=== PATIENT | female | born 1960 | race Caucasian/White ===

== ENCOUNTER 2016-05-26 14:05 | Inpatient (IN) | payer MEDICAID ==
--- NOTE | 2016-05-26 14:09 | ED Physician Chart ---
Chief Complaint/HPI - Patient Information Date Seen:: 05/26/16 Time Seen:: 14:09 Chief Complaint:: confusion History of Present Illness:: 55-year-old female with worsening, constant, moderate, confusion 3 days. Has associated uncooperative behavior and refusing to take her medications. Patient has a past history of hepatic encephalopathy. History limited as patient has underlying confusion History provided by EMS and EMS run sheet Allergies:: Allergies Allergy/AdvReac Type Severity Reaction Status Date / Time No Known Allergies Allergy Verified 04/20/16 01:14 Historian:: EMS Review:: Nurse's Note Reviewed, EMS run form Reviewed, Transfer documents Reviewed Review of Systems - Review of Systems Other: Complete system review otherwise unremarkable except as noted in HPI. Past Medical History - Past Medical History Past Medical History: PUD/GERD, Thyroid disorder, Other (hepatic failure, orthostatic hypotension, unspecified cirrhosis of the liver, history of diverticulosis) Family History: None Social History: Non Smoker, No Alcohol, No Drug Use, Lives With Parents Surgical History: None Psychiatricy History: Other Medication: None Family Medical History - Family Member Mother History Unknown: Yes Ethnicity: Hx Family Cancer: No Hx Family Coronary Artery Disease: No Hx Family Congestive Heart Failure: No Hx Family Hypertension: No Hx Family Stroke: No Hx Family Diabetes: No Hx Family Seizures: No Hx Family Dementia: No Hx Family AIDS: No Hx Family HIV: No Hx Family COPD: No Hx Family Hepatitis: No Hx Family Psychiatric Problems: No Hx Family Tuberculosis: No Physical Exam - Physical Examination Other:: INITIAL VITAL SIGNS: Reviewed by me GENERAL: Alert and interactive but confused. No acute distress HEAD: Head is normocephalic and atraumatic EYES: EOMI. . No scleral icterus. No conjunctival injection ENT: Moist mucous membranes. NECK: Supple. No masses. Full range of motion RESPIRATORY: No tachypnea. Clear breath sounds bilaterally. No wheezing, rales, or rhonchi CV: Regular rate and rhythm. No murmurs, rubs, or gallops ABDOMEN: Soft, non-distended, non-tender. No guarding. No rebound. No masses. EXTREMITIES: No deformity. No cyanosis. No edema. SKIN: Warm and dry. No obvious rashes. NEUROLOGIC: Alert and oriented. Face is symmetric. Speech is normal. Moves all extremities equally. Motor and sensory distally intact. Labs/Radiology/EKG Results - Lab Results Results: Lab Results 05/26/16 05/26/16 05/26/16 Range/Units 14:28 14:28 14:28 WBC 6.1 (4.8-10.8) Th/cmm RBC 3.55 L (3.80-5.10) Mil/cmm Hgb 10.6 L (11.7-15.5) gm/dL Hct 31.4 L (35.0-45.0) % MCV 88.5 (81-100) fl MCH 29.8 (27.0-31.0) pg MCHC Differential 33.7 (28.0-36.0) pg RDW 14.3 (11.5-20.0) % Plt Count 167 D (150-400) Th/cmm MPV 7.5 fl Neutrophils % 52.1 (40.0-80.0) % Lymphocytes % 35.2 (20.0-50.0) % Monocytes % 9.5 (2.0-10.0) % Eosinophils % 2.5 (0.0-5.0) % Basophils % 0.7 (0.0-2.0) % PT 11.6 H (9.5-11.5) SECONDS INR 1.16 (0.5-1.4) PTT (Actin FS) 27.6 (26.0-38.0) SECONDS Sodium 135 L (136-145) mEq/L Potassium 3.8 (3.5-5.1) mEq/L Chloride 108 H (98-107) mEq/L Carbon Dioxide 20.5 L (21.0-31.0) mEq/L Anion Gap 10.3 (7.0-16.0) BUN 11 (7-25) mg/dL Creatinine 0.6 (0.6-1.2) mg/dL Est GFR ( Amer) > 60.0 ml/min Est GFR (Non-Af Amer) > 60.0 ml/min BUN/Creatinine Ratio 18.3 Glucose 115 H (70-105) mg/dL Whole Bld Lactic Acid (0.60-2.00) mmol/L Calcium 10.4 H (8.6-10.3) mg/dL Total Bilirubin 1.3 H (0.3-1.0) mg/dL AST 24 (13-39) U/L ALT 12 (7-52) U/L Alkaline Phosphatase 161 H (34-104) U/L Ammonia (16-53) umol/L Creatine Kinase 32 (30-223) U/L Total Protein 7.4 (6.0-8.3) gm/dL Albumin 3.8 (3.7-5.3) gm/dL Globulin 3.6 gm/dL Albumin/Globulin Ratio 1.1 (1.0-1.8) 05/26/16 05/26/16 Range/Units 14:28 14:28 WBC (4.8-10.8) Th/cmm RBC (3.80-5.10) Mil/cmm Hgb (11.7-15.5) gm/dL Hct (35.0-45.0) % MCV (81-100) fl MCH (27.0-31.0) pg MCHC Differential (28.0-36.0) pg RDW (11.5-20.0) % Plt Count (150-400) Th/cmm MPV fl Neutrophils % (40.0-80.0) % Lymphocytes % (20.0-50.0) % Monocytes % (2.0-10.0) % Eosinophils % (0.0-5.0) % Basophils % (0.0-2.0) % PT (9.5-11.5) SECONDS INR (0.5-1.4) PTT (Actin FS) (26.0-38.0) SECONDS Sodium (136-145) mEq/L Potassium (3.5-5.1) mEq/L Chloride (98-107) mEq/L Carbon Dioxide (21.0-31.0) mEq/L Anion Gap (7.0-16.0) BUN (7-25) mg/dL Creatinine (0.6-1.2) mg/dL Est GFR ( Amer) ml/min Est GFR (Non-Af Amer) ml/min BUN/Creatinine Ratio Glucose (70-105) mg/dL Whole Bld Lactic Acid 1.15 (0.60-2.00) mmol/L Calcium (8.6-10.3) mg/dL Total Bilirubin (0.3-1.0) mg/dL AST (13-39) U/L ALT (7-52) U/L Alkaline Phosphatase (34-104) U/L Ammonia 66 H (16-53) umol/L Creatine Kinase (30-223) U/L Total Protein (6.0-8.3) gm/dL Albumin (3.7-5.3) gm/dL Globulin gm/dL Albumin/Globulin Ratio (1.0-1.8) - Radiology Results Results: Single AP VIEW Portable Chest X-ray was interpreted independently and contemporaneously by Yolanda Yancey MD: No cardiomegaly Normal mediastinum No lung infiltrates No pneumothorax No soft tissue or bony abnormalities - EKG Interpretations Comments:: 12-lead EKG Interpretation by Yolanda Yancey MD: Normal Sinus Rhythm with ventricular rate of 76 beats per minute Normal axis Normal intervals No acute ST or T wave changes. No obvious STEMI ED Septic Shock - . Is Septic Shock (SBP<90, OR Lactate>4 mmol\L) present?: No Reassessment (Disposition) - Reassessment Reassessment:: Patient has elevated ammonia. She has hepatic encephalopathy. Apparently she is refusing to take her lactulose. Also has a hyponatremia and anemia. Discussed the case with Dr. Camp who is admitting for . He will admit the patient to his service for further workup and treatment. Reassessment Condition:: Unchanged - Diagnosis Diagnosis:: Metabolic encephalopathy secondary to mid ammonia levels - Patient Disposition Discharge/Transfer:: Acute Care w/in this hosp Admitted to:: Med/Surg Admitting Medical Physician:: Sen Camp Time:: 17:00 Condition at Disposition:: Stable ED Discharge Plan - Patient Disposition Admit/Discharge/Transfer: Acute Care w/in this hosp
[2016-05-26 14:45] LABS: % BASOPHILS 0.7 % (0.0-2.0); % EOSINOPHILS 2.5 % (0.0-5.0); % LYMPHOCYTES 35.2 % (20.0-50.0); % MONOCYTES 9.5 % (2.0-10.0); % NEUTROPHILS 52.1 % (40.0-80.0); HEMATOCRIT 31.4 % (35.0-45.0); HEMOGLOBIN 10.6 gm/dL (11.7-15.5); MEAN CELL VOLUME 88.5 fl (81-100); MEAN CORPUSCULAR HEMOGLOBIN 29.8 pg (27.0-31.0); MEAN CORPUSCULAR HGB CONC 33.7 pg (28.0-36.0); MEAN PLATELET VOLUME 7.5 fl; NEUTROPHILE ABSOLUTE 3.2 Th/cmm (1.8-8.0); RED BLOOD COUNT 3.55 Mil/cmm (3.80-5.10); RED CELL DISTRIBUTION WIDTH 14.3 % (11.5-20.0); WHITE BLOOD COUNT 6.1 Th/cmm (4.8-10.8)
[2016-05-26 14:51] LABS: PLATELET COUNT 167 Th/cmm (150-400)
[2016-05-26 14:53] LABS: INR 1.16 (0.5-1.4); PROTHROMBIN TIME (TEST) 11.6 SECONDS (9.5-11.5)
[2016-05-26 15:00] LABS: ALB/GLOB RATIO 1.1 (1.0-1.8); ALKALINE PHOSPHATASE 161 U/L (34-104); ANION GAP 10.3 (7.0-16.0); BILIRUBIN,TOTAL 1.3 mg/dL (0.3-1.0); BUN - UREA NITROGEN 11 mg/dL (7-25); BUN/CREATININE RATIO 18.3; CALCIUM SERUM 10.4 mg/dL (8.6-10.3); CARBON DIOXIDE 20.5 mEq/L (21.0-31.0); CHLORIDE 108 mEq/L (98-107); CREATININE - SERUM 0.6 mg/dL (0.6-1.2); GLUCOSE 115 mg/dL (70-105); POTASSIUM SERUM 3.8 mEq/L (3.5-5.1); SGOT 24 U/L (13-39); SGPT/ALT 12 U/L (7-52); SODIUM SERUM 135 mEq/L (136-145)
--- NOTE | 2016-05-26 15:21 | Diagnostic Imaging Report ---
Portable chest x-ray HISTORY: Shortness of breath, sepsis The overall heart size is difficult to assess with portable technique at a poor inspiration. No acute focal pulmonary processes. No hilar or mediastinal abnormalities. IMPRESSION: No acute abnormalities
[2016-05-26] MEDS ORDERED: Lactulose 10 Gm/15 mL 30mL UDC PO SCH (20:00)
[2016-05-27] MEDS ORDERED: Maalox 30 mL Cup PO PRN (01:56)
[2016-05-27] MEDS: Sodium Chloride 0.9% 1,000 ML IV SCH (02:24)
--- NOTE | 2016-05-27 03:30 | History & Physical ---
This is Dr. Sen Camp dictating a History and Physical on behalf of Dr. West. CHIEF COMPLAINT: The patient has generalized weakness with confusion. HISTORY OF PRESENT ILLNESS: As per the record, the patient was uncooperative and refusing to take her medications. The patient gives a different story that she was forced to take some medications that she does not want to take. Otherwise, no fever, no chills, no nausea, no vomiting, no diarrhea, no constipation, no dysuria. On initial evaluation, the patient's vital signs were stable and ammonia was high, it was 66. So, the patient was admitted with a diagnosis of hepatic encephalopathy. PAST MEDICAL HISTORY: Includes peptic ulcer, GERD, hypothyroidism, history of hepatic encephalopathy, hepatic failure, orthostatic hypotension, cirrhosis of liver, history of diverticulosis. FAMILY HISTORY: Noncontributory. SOCIAL HISTORY: The patient lives at a SNF. Denies any smoking, alcohol or drug use. PAST SURGICAL HISTORY: None. PSYCHIATRIC HISTORY: Depression one episode in the past and on Lexapro. ALLERGIES: No known drug allergies. MEDICATIONS: As per medication reconciliation sheet. REVIEW OF SYSTEMS: GENERAL: The patient has no fever, no chills. Has generalized weakness. HEENT: No diplopia. No photophobia. No sore throat. RESPIRATORY: No cough. No shortness of breath. CARDIOVASCULAR: No chest pain or palpitation. GASTROINTESTINAL: No nausea. No vomiting. No diarrhea. No constipation. GENITOURINARY: No dysuria. No hematuria. NEUROLOGICAL: No headache. No dizziness. No focal weakness. As per the records, the patient was confused. PHYSICAL EXAMINATION: CURRENT VITAL SIGNS: Temperature is 98 degrees Fahrenheit, pulse 71, respirations 20, blood pressure 103/47. GENERAL: The patient is comfortable lying in the bed, not in acute distress. HEENT: Head is normocephalic, atraumatic. Oral cavity moist, pink tongue. Eyes: No pallor, no icterus. Pupils, PERRLA, EOMI. NECK: Supple. No JVD. No carotid bruit. Trachea in midline. CHEST: Bilateral breath sounds. No crackles, no wheezing. HEART: S1, S2 within normal limits. Regular rhythm. No murmur. No gallop. ABDOMEN: Soft, nontender, nondistended. Bowel sounds present. EXTREMITIES: No cyanosis. No clubbing. No edema. NEUROLOGIC: Alert, awake, oriented x3. No focal neuro deficit. LABORATORY DATA: Current lab shows WBC count is 6100, hemoglobin 10.6, hematocrit is 31.4, platelets are 167,000, neutrophil is 52%. INR is 1.16, sodium is 135, potassium 3.8, chloride 108, bicarbonate is 20, BUN is 11, creatinine 0.6, glucose is 115. Lactic acid is 1.15. Total bilirubin 1.3, AST 24, ALT is 12, alkaline phosphatase 161 and ammonia is 66. CPK is 32. IMPRESSION: 1. Elevated ammonia, suspect hepatic encephalopathy. 2. Cirrhosis of liver, likely viral. 3. Hypothyroidism. 4. Anemia. 5. Orthostatic hypotension. 6. History of diverticulosis. PLAN: We will continue lactulose. Check ammonia level in the morning. Check TSH level in the morning. Meanwhile, we will start the patient on lactulose 30 mL 3 times a day and rifaximin. Depending on ammonia level tomorrow, we will decide further plan. Meanwhile, GI consultation was called. JOB# [id number] MTDGregory
[2016-05-27 05:19] LABS: % BASOPHILS 0.6 % (0.0-2.0); % EOSINOPHILS 2.9 % (0.0-5.0); % LYMPHOCYTES 38.2 % (20.0-50.0); % MONOCYTES 8.3 % (2.0-10.0); HEMATOCRIT 31.4 % (35.0-45.0); HEMOGLOBIN 10.8 gm/dL (11.7-15.5); MEAN CELL VOLUME 87.1 fl (81-100); MEAN CORPUSCULAR HGB CONC 34.4 pg (28.0-36.0); MEAN PLATELET VOLUME 7.8 fl; NEUTROPHILE ABSOLUTE 3.1 Th/cmm (1.8-8.0); PLATELET COUNT 153 Th/cmm (150-400); RED BLOOD COUNT 3.61 Mil/cmm (3.80-5.10); RED CELL DISTRIBUTION WIDTH 14.2 % (11.5-20.0); WHITE BLOOD COUNT 6.1 Th/cmm (4.8-10.8)
[2016-05-27 05:32] LABS: ALB/GLOB RATIO 1.1 (1.0-1.8); ALKALINE PHOSPHATASE 144 U/L (34-104); ANION GAP 9.9 (7.0-16.0); BILIRUBIN,TOTAL 1.4 mg/dL (0.3-1.0); BUN - UREA NITROGEN 12 mg/dL (7-25); CALCIUM SERUM 10.2 mg/dL (8.6-10.3); CARBON DIOXIDE 21.9 mEq/L (21.0-31.0); CHLORIDE 107 mEq/L (98-107); CREATININE - SERUM 0.6 mg/dL (0.6-1.2); GLUCOSE 93 mg/dL (70-105); POTASSIUM SERUM 3.8 mEq/L (3.5-5.1); SGOT 22 U/L (13-39); SGPT/ALT 11 U/L (7-52); SODIUM SERUM 135 mEq/L (136-145)
[2016-05-27] MEDS: Pantoprazole 40 mg EC Tab PO SCH (05:59)
[2016-05-27] MEDS: Lactulose 10 Gm/15 mL 30mL UDC PO SCH ×3 (05:59→20:36)
[2016-05-27] MEDS: Levothyroxine 0.025 Mg Tab PO SCH (05:59)
[2016-05-27] MEDS: Potassium Chloride 20 mEq ER Tab PO SCH ×2 (09:50→16:43)
[2016-05-27] MEDS: Multivitamin w/ Minerals Tab PO SCH (09:51)
--- NOTE | 2016-05-27 12:21 | Consultation ---
HISTORY OF PRESENT ILLNESS: This is a 55-year-old female who is seen through the courtesy of Dr. Sen Camp. This patient was admitted from the correction as this patient was found to have altered mental status. This patient has a known history of liver cirrhosis on the basis of heavy alcohol intake, which she continued to drink until 3 months ago. The patient was found to have ammonia level at 96, and the patient was then admitted. The patient denies any history of GI bleeding. No history of rectal bleeding. Denies any dysphagia. No history of weight loss. The patient does not smoke. The patient had been drinking heavily until she quit three months ago. PAST MEDICAL HISTORY: Also remarkable for history of hypothyroidism, history of major depression, history of arteriosclerotic heart disease with angina pectoris. The patient also had a history of GERD and diverticulosis. The patient had EGD and colonoscopy done in the past. The patient had a hysterectomy. REVIEW OF SYSTEMS: Remarkable for altered mental status. No history of GI bleeding. MEDICATIONS: She has been on in the correction on Ativan, Ambien, chlordiazepoxide, docusate sodium, lactulose, levothyroxine, magnesium oxide, Mylanta, Nitrostat p.r.n. ALLERGIES: The patient is not allergic to any medication. PHYSICAL EXAMINATION: GENERAL: The patient is an elderly female who is lethargic, but responsive and answering the question appropriately. VITAL SIGNS: Temperature is 98, respiratory rate is 18, blood pressure is 140/80, pulse is 82. HEENT: Head normocephalic. Pupils are reactive to light. Conjunctivae are slightly pale. No scleral icterus. Throat is clear. NECK: Supple. No JV distention, no mass. LUNGS: Revealed no rales or rhonchi. CARDIOVASCULAR: Revealed normal sinus rhythm. No evidence of any murmur. ABDOMEN: Soft, no organomegaly, no tenderness. Intestinal sounds are present. RECTAL: Not performed. EXTREMITIES: No peripheral edema, cyanosis or jaundice. LABORATORY DATA: White count is 6.1, hemoglobin is 10.8, hematocrit 31.4, serum ammonia is 96, BUN is 12, creatinine is 0.6. ASSESSMENT: 1. Altered level of consciousness, most likely is due to hepatic encephalopathy. 2. Liver cirrhosis on the basis of history of alcohol abuse. 3. Hypothyroidism. RECOMMENDATIONS: We will continue the patient on lactulose and also rifaximin and will follow the serum ammonia level and will watch the patient for any GI bleeding or any infection. Since the patient had EGD and colonoscopy, there is no need to do any invasive procedure unless the patient is having active GI bleeding. Thank you for the consult, Dr. Camp. We will follow this patient with you. JOB# [id number]
--- NOTE | 2016-05-27 16:22 | Infectious Disease Prog Note ---
Infectious Disease Subjective - Review of Systems Service Date: 05/27/16 Subjective: Patient feels better, there is no fever. Infectious Disease Objective - Results Result Diagrams: 05/27/16 05:00 05/27/16 05:00 Recent Labs: Laboratory Last Values WBC 6.1 Th/cmm (4.8-10.8) 05/27/16 05:00 RBC 3.61 Mil/cmm (3.80-5.10) L 05/27/16 05:00 Hgb 10.8 gm/dL (11.7-15.5) L 05/27/16 05:00 Hct 31.4 % (35.0-45.0) L 05/27/16 05:00 MCV 87.1 fl (81-100) 05/27/16 05:00 MCH 30.0 pg (27.0-31.0) 05/27/16 05:00 MCHC Differential 34.4 pg (28.0-36.0) 05/27/16 05:00 RDW 14.2 % (11.5-20.0) 05/27/16 05:00 Plt Count 153 Th/cmm (150-400) 05/27/16 05:00 MPV 7.8 fl 05/27/16 05:00 Neutrophils % 50.0 % (40.0-80.0) 05/27/16 05:00 Lymphocytes % 38.2 % (20.0-50.0) 05/27/16 05:00 Monocytes % 8.3 % (2.0-10.0) 05/27/16 05:00 Eosinophils % 2.9 % (0.0-5.0) 05/27/16 05:00 Basophils % 0.6 % (0.0-2.0) 05/27/16 05:00 PT 11.6 SECONDS (9.5-11.5) H 05/26/16 14:28 INR 1.16 (0.5-1.4) 05/26/16 14:28 PTT (Actin FS) 27.6 SECONDS (26.0-38.0) 05/26/16 14:28 Sodium 135 mEq/L (136-145) L 05/27/16 05:00 Potassium 3.8 mEq/L (3.5-5.1) 05/27/16 05:00 Chloride 107 mEq/L (98-107) 05/27/16 05:00 Carbon Dioxide 21.9 mEq/L (21.0-31.0) 05/27/16 05:00 Anion Gap 9.9 (7.0-16.0) 05/27/16 05:00 BUN 12 mg/dL (7-25) 05/27/16 05:00 Creatinine 0.6 mg/dL (0.6-1.2) 05/27/16 05:00 Est GFR ( Amer) > 60.0 ml/min 05/27/16 05:00 Est GFR (Non-Af Amer) > 60.0 ml/min 05/27/16 05:00 BUN/Creatinine Ratio 20.0 05/27/16 05:00 Glucose 93 mg/dL (70-105) 05/27/16 05:00 Whole Bld Lactic Acid 1.15 mmol/L (0.60-2.00) 05/26/16 14:28 Calcium 10.2 mg/dL (8.6-10.3) 05/27/16 05:00 Total Bilirubin 1.4 mg/dL (0.3-1.0) H 05/27/16 05:00 AST 22 U/L (13-39) 05/27/16 05:00 ALT 11 U/L (7-52) 05/27/16 05:00 Alkaline Phosphatase 144 U/L (34-104) H 05/27/16 05:00 Ammonia 96 umol/L (16-53) H 05/27/16 07:44 Creatine Kinase 32 U/L (30-223) 05/26/16 14:28 Total Protein 6.8 gm/dL (6.0-8.3) 05/27/16 05:00 Albumin 3.5 gm/dL (3.7-5.3) L 05/27/16 05:00 Globulin 3.3 gm/dL 05/27/16 05:00 Albumin/Globulin Ratio 1.1 (1.0-1.8) 05/27/16 05:00 TSH 1.21 uIU/ml (0.34-5.60) 05/27/16 05:00 - Physical Exam Vitals and I&O: Vital Signs Temp 98.9 F 05/27/16 08:00 Pulse 69 05/27/16 14:01 Resp 17 05/27/16 08:00 BP 97/60 05/27/16 14:01 Pulse Ox 99 05/27/16 08:00 Intake & Output 05/26/16 05/27/16 05/27/16 18:59 06:59 18:59 Weight (lbs) 58.967 kg Other: Stool Characteristics Liquid Active Medications: Current Medications Al Hydrox/Mg Hydrox/Simethicone (Maalox) 30 ml PO Q6H PRN PRN Reason: Indigestion Stop: 07/26/16 01:55 Chlordiazepoxide (Librium) 25 mg PO DAILY JOLIE PRN Reason: Protocol Stop: 07/26/16 08:59 Last Admin: 05/27/16 09:51 Dose: 25 mg Docusate Sodium (Colace) 100 mg PO Q12H PRN PRN Reason: Constipation Stop: 07/26/16 01:55 Escitalopram Oxalate (Lexapro) 20 mg PO DAILY JOLIE PRN Reason: Protocol Stop: 07/26/16 08:59 Last Admin: 05/27/16 09:51 Dose: 20 mg Sodium Chloride (Nacl 0.9%) 1,000 mls @ 50 mls/hr IV .Q20H JOLIE Stop: 07/26/16 01:59 Last Admin: 05/27/16 02:24 Dose: 50 mls/hr Lactulose (Cephulac) 30 gm PO Q8HR JOLIE Stop: 07/26/16 04:59 Last Admin: 05/27/16 14:00 Dose: 30 gm Levothyroxine Sodium (Synthroid) 0.025 mg PO QDAC JOLIE Stop: 07/26/16 06:29 Last Admin: 05/27/16 05:59 Dose: 0.025 mg Lorazepam (Ativan) 1 mg PO Q6HR PRN; Protocol PRN Reason: Agitation Stop: 07/26/16 01:55 Magnesium Oxide (Mag-Oxide) 400 mg PO BID JOLIE Stop: 07/26/16 08:59 Last Admin: 05/27/16 09:50 Dose: 400 mg Megestrol Acetate (Megace) 40 mg PO DAILY JOLIE PRN Reason: Protocol Stop: 07/26/16 08:59 Last Admin: 05/27/16 09:50 Dose: 40 mg Midodrine (Proamatine) 5 mg PO TID [facility] Stop: 07/26/16 08:59 Last Admin: 05/27/16 14:01 Dose: 5 mg Nitroglycerin (Nitrostat) 0.4 mg SL Q5MIN PRN PRN Reason: Chest Pain Stop: 07/26/16 01:55 Ondansetron HCl (Zofran Odt) 4 mg PO Q6HR PRN PRN Reason: Nausea Stop: 07/26/16 02:14 Pantoprazole Sodium (Protonix) 40 mg PO QDAC [facility] Stop: 07/26/16 06:29 Last Admin: 05/27/16 05:59 Dose: 40 mg Potassium Chloride (Klor-Con) 20 meq PO BID [facility] Stop: 07/26/16 08:59 Last Admin: 05/27/16 09:50 Dose: 20 meq Rifaximin (Xifaxan) 600 mg PO BID [facility] Stop: 07/26/16 08:59 Last Admin: 05/27/16 09:50 Dose: 600 mg Spironolactone (Aldactone) 25 mg PO TID [facility] Stop: 07/26/16 08:59 Last Admin: 05/27/16 14:01 Dose: Not Given Zolpidem Tartrate (Ambien) 5 mg PO HS PRN PRN Reason: Insomnia Stop: 07/26/16 01:55 General: no acute distress, well developed, well nourished, cachectic HEENT: atraumatic, normocephalic, PERRLA, EOMI Neck: supple Cardiovascular: S1S2, regular Lungs: clear to auscultation bilaterally, clear to percussion Abdomen: soft, no tender, no distended Extremities: no cyanosis, no clubbing, no edema Neurological: awake, alert, oriented Skin: intact Infectious Disease Assmt/Plan - Problem List Patient Problems: All Active Problems Abdominal pain (Acute) R10.9 Alcoholic cirrhosis of liver with ascites (Acute) K70.31 Cirrhosis (Acute) Hepatic encephalopathy (Acute) K72.90 - Assessment Assessment: 1. Hepatic encephalopathy. 2. Hypothyroidism 3. Depression. 4. - Plan Plan: Continue rifaximin and lactulose. Check labs in am. GI consult appreciated.
[2016-05-28] MEDS: Lactulose 10 Gm/15 mL 30mL UDC PO SCH ×3 (06:00→21:19)
[2016-05-28] MEDS: Pantoprazole 40 mg EC Tab PO SCH (06:01)
[2016-05-28] MEDS: Levothyroxine 0.025 Mg Tab PO SCH (06:01)
[2016-05-28] MEDS: Potassium Chloride 20 mEq ER Tab PO SCH ×2 (09:09→18:24)
[2016-05-28] MEDS: Multivitamin w/ Minerals Tab PO SCH (09:09)
--- NOTE | 2016-05-28 10:35 | Diagnostic Imaging Report ---
Portable chest x-ray History: Shortness of breath Allowing for portable technique the heart size is normal. No focal pulmonary parenchymal processes. No hilar or mediastinal abnormalities. Impression: No acute abnormalities.
[2016-05-29] MEDS: Levothyroxine 0.025 Mg Tab PO SCH (06:17)
[2016-05-29] MEDS: Pantoprazole 40 mg EC Tab PO SCH (06:17)
[2016-05-29] MEDS: Lactulose 10 Gm/15 mL 30mL UDC PO SCH ×3 (06:17→22:00)
[2016-05-29] MEDS: Multivitamin w/ Minerals Tab PO SCH (08:15)
[2016-05-29] MEDS: Potassium Chloride 20 mEq ER Tab PO SCH ×2 (08:16→16:13)
--- NOTE | 2016-05-29 11:53 | Infectious Disease Prog Note ---
Infectious Disease Subjective - Review of Systems Service Date: 05/29/16 Subjective: Patient feels better, there is no fever. Infectious Disease Objective - Results Result Diagrams: 05/27/16 05:00 05/27/16 05:00 Recent Labs: Laboratory Last Values WBC 6.1 Th/cmm (4.8-10.8) 05/27/16 05:00 RBC 3.61 Mil/cmm (3.80-5.10) L 05/27/16 05:00 Hgb 10.8 gm/dL (11.7-15.5) L 05/27/16 05:00 Hct 31.4 % (35.0-45.0) L 05/27/16 05:00 MCV 87.1 fl (81-100) 05/27/16 05:00 MCH 30.0 pg (27.0-31.0) 05/27/16 05:00 MCHC Differential 34.4 pg (28.0-36.0) 05/27/16 05:00 RDW 14.2 % (11.5-20.0) 05/27/16 05:00 Plt Count 153 Th/cmm (150-400) 05/27/16 05:00 MPV 7.8 fl 05/27/16 05:00 Neutrophils % 50.0 % (40.0-80.0) 05/27/16 05:00 Lymphocytes % 38.2 % (20.0-50.0) 05/27/16 05:00 Monocytes % 8.3 % (2.0-10.0) 05/27/16 05:00 Eosinophils % 2.9 % (0.0-5.0) 05/27/16 05:00 Basophils % 0.6 % (0.0-2.0) 05/27/16 05:00 PT 11.6 SECONDS (9.5-11.5) H 05/26/16 14:28 INR 1.16 (0.5-1.4) 05/26/16 14:28 PTT (Actin FS) 27.6 SECONDS (26.0-38.0) 05/26/16 14:28 Sodium 135 mEq/L (136-145) L 05/27/16 05:00 Potassium 3.8 mEq/L (3.5-5.1) 05/27/16 05:00 Chloride 107 mEq/L (98-107) 05/27/16 05:00 Carbon Dioxide 21.9 mEq/L (21.0-31.0) 05/27/16 05:00 Anion Gap 9.9 (7.0-16.0) 05/27/16 05:00 BUN 12 mg/dL (7-25) 05/27/16 05:00 Creatinine 0.6 mg/dL (0.6-1.2) 05/27/16 05:00 Est GFR ( Amer) > 60.0 ml/min 05/27/16 05:00 Est GFR (Non-Af Amer) > 60.0 ml/min 05/27/16 05:00 BUN/Creatinine Ratio 20.0 05/27/16 05:00 Glucose 93 mg/dL (70-105) 05/27/16 05:00 Whole Bld Lactic Acid 1.15 mmol/L (0.60-2.00) 05/26/16 14:28 Calcium 10.2 mg/dL (8.6-10.3) 05/27/16 05:00 Total Bilirubin 1.4 mg/dL (0.3-1.0) H 05/27/16 05:00 AST 22 U/L (13-39) 05/27/16 05:00 ALT 11 U/L (7-52) 05/27/16 05:00 Alkaline Phosphatase 144 U/L (34-104) H 05/27/16 05:00 Ammonia 47 umol/L (16-53) 05/28/16 05:00 Creatine Kinase 32 U/L (30-223) 05/26/16 14:28 Total Protein 6.8 gm/dL (6.0-8.3) 05/27/16 05:00 Albumin 3.5 gm/dL (3.7-5.3) L 05/27/16 05:00 Globulin 3.3 gm/dL 05/27/16 05:00 Albumin/Globulin Ratio 1.1 (1.0-1.8) 05/27/16 05:00 TSH 1.21 uIU/ml (0.34-5.60) 05/27/16 05:00 - Physical Exam Vitals and I&O: Vital Signs Temp 98.9 F 05/29/16 08:30 Pulse 69 05/29/16 08:30 Resp 18 05/29/16 08:30 BP 109/59 05/29/16 08:30 Pulse Ox 96 05/29/16 08:30 Intake & Output 05/28/16 05/29/16 05/29/16 18:59 06:59 18:59 Intake Total 1000 300 Balance 1000 300 Intake: Oral 1000 300 Other: # Voids 3 3 # Bowel Movements 2 2 Stool Characteristics Soft Active Medications: Current Medications Al Hydrox/Mg Hydrox/Simethicone (Maalox) 30 ml PO Q6H PRN PRN Reason: Indigestion Stop: 07/26/16 01:55 Chlordiazepoxide (Librium) 25 mg PO DAILY JOLIE PRN Reason: Protocol Stop: 07/26/16 08:59 Last Admin: 05/29/16 08:16 Dose: 25 mg Docusate Sodium (Colace) 100 mg PO Q12H PRN PRN Reason: Constipation Stop: 07/26/16 01:55 Escitalopram Oxalate (Lexapro) 20 mg PO DAILY JOLIE PRN Reason: Protocol Stop: 07/26/16 08:59 Last Admin: 05/29/16 08:16 Dose: 20 mg Sodium Chloride (Nacl 0.9%) 1,000 mls @ 50 mls/hr IV .Q20H [facility] Stop: 07/26/16 01:59 Last Admin: 05/27/16 02:24 Dose: 50 mls/hr Lactulose (Cephulac) 30 gm PO Q8HR JOLIE Stop: 07/26/16 04:59 Last Admin: 05/29/16 06:17 Dose: 30 gm Levothyroxine Sodium (Synthroid) 0.025 mg PO QDAC JOLIE Stop: 07/26/16 06:29 Last Admin: 05/29/16 06:17 Dose: 0.025 mg Lorazepam (Ativan) 1 mg PO Q6HR PRN; Protocol PRN Reason: Agitation Stop: 07/26/16 01:55 Last Admin: 05/28/16 21:19 Dose: 1 mg Magnesium Oxide (Mag-Oxide) 400 mg PO BID JOLIE Stop: 07/26/16 08:59 Last Admin: 05/29/16 08:16 Dose: 400 mg Megestrol Acetate (Megace) 40 mg PO DAILY JOLIE PRN Reason: Protocol Stop: 07/26/16 08:59 Last Admin: 05/29/16 08:16 Dose: 40 mg Midodrine (Proamatine) 5 mg PO TID [facility] Stop: 07/26/16 08:59 Last Admin: 05/29/16 08:16 Dose: 5 mg Nitroglycerin (Nitrostat) 0.4 mg SL Q5MIN PRN PRN Reason: Chest Pain Stop: 07/26/16 01:55 Last Admin: 05/29/16 03:17 Dose: 0.4 mg Ondansetron HCl (Zofran Odt) 4 mg PO Q6HR PRN PRN Reason: Nausea Stop: 07/26/16 02:14 Pantoprazole Sodium (Protonix) 40 mg PO QDAC [facility] Stop: 07/26/16 06:29 Last Admin: 05/29/16 06:17 Dose: 40 mg Potassium Chloride (Klor-Con) 20 meq PO BID JOLIE Stop: 07/26/16 08:59 Last Admin: 05/29/16 08:16 Dose: 20 meq Rifaximin (Xifaxan) 600 mg PO BID [facility] Stop: 07/26/16 08:59 Last Admin: 05/29/16 09:55 Dose: 600 mg Spironolactone (Aldactone) 25 mg PO TID [facility] Stop: 07/26/16 08:59 Last Admin: 05/29/16 08:16 Dose: Not Given Zolpidem Tartrate (Ambien) 5 mg PO HS PRN PRN Reason: Insomnia Stop: 07/26/16 01:55 Last Admin: 05/29/16 00:17 Dose: 5 mg General: no acute distress, well developed, well nourished HEENT: atraumatic, normocephalic, PERRLA, EOMI Neck: supple Cardiovascular: S1S2, regular Lungs: clear to auscultation bilaterally, clear to percussion Abdomen: soft, no tender, no distended Extremities: no cyanosis, no clubbing, no edema Neurological: awake, alert, oriented, CN 2-12 intact Skin: intact Infectious Disease Assmt/Plan - Problem List Patient Problems: All Active Problems Abdominal pain (Acute) R10.9 Alcoholic cirrhosis of liver with ascites (Acute) K70.31 Cirrhosis (Acute) Hepatic encephalopathy (Acute) K72.90 - Assessment Assessment: 1. Hepatic encephalopathy. 2. Hypothyroidism 3. Depression. - Plan Plan: Continue rifaximin and lactulose. Check labs in am. GI consult appreciated. SS consult.
--- NOTE | 2016-05-29 21:17 | Admit Criteria Form ---
Admit Criteria Forms - Admit Criteria Diagnosis: LIVER DISEASE COMPLICATIONS Clinical Indications for Admission to Inpatient Care (Place 'X' for any and all applicable criteria): Admission is indicated for patient with ANY ONE of the following(1)(2)(3)(4): [ ]I. Inpatient admission required rather than observation care because of ANY ONE of the following: [ ]a) Hemodynamic instability that is severe or persistent [ ]b) Severe electrolyte abnormalities requiring inpatient care [ ]c) Respiratory compromise that is severe or persistent [ ]d) Coagulation abnormal that is severe or persistent [ ]e) Severe pain requiring acute inpatient management [ ]f) Renal insufficiency that is severe or worsening [ ]g) Metabolic abnormalities (e.g., vomiting, hypoglycemia, acidosis) that are severe or persistent [ ]h) Hypovolemia or hypervolemia that is severe or persistent [ ]i) Absent bowel sounds with complete ileus(2) [ ]j) Signs of intestinal obstruction or peritonitis[A] [ ]k) IV fluid to replace significant ongoing losses (>3 L/m2 per day) [ ]l) Continuous IV infusion of anticoagulation, platelet inhibitor, vasoactive, or antiarrhythmic medication [ ]m) Percutaneous or open drainage (e.g., abscess, biliary tract) procedures [ ]n) Parenteral nutrition regimen that must be implemented on inpatient basis [ ]o) Other condition treatment or monitoring requiring inpatient admission [ ]II. Infected hepatic hydrothorax (eg, empyema) [ ]III. Hepatorenal syndrome (eg, elevated. creatinine with adequate volume status and negative evaluation for other cause)(8) [ ]IV. Spontaneous bacterial peritonitis [ ]V. Suspected infected ascites as indicated by ANY ONE of the following: [ ]a) Temp >100 degrees F (37.8 C ) [ ]b) High WBC count [ ]c) Abdominal pain or tenderness not relieved by paracentesis [X]. New-onset or worsening hepatic encephalopathy(7) [ ]VII. Suspected fulminant hepatic failure (e.g., acute coagulopathy with hepatic encephalopathy or acute elevation of hepatic transaminases to more than 15 times baseline)(4) [ ]VIII. Acute hepatitis (e.g., ALT and AST at least 3 times baseline) with coagulopathy or severe jaundice as indicated by ANY ONE of the following(9)(10): [ ]a) Bilirubin >20 mg/dL (342 moles/L)(11) [ ]b) Acute elevation of PT to >50% above normal or INR >1.5 [ ] IX. Treatment of injury from hepatotoxin (e.g., acetaminophen) that requires inpatient monitoring [ ] X. Acute fatty liver of Extended stay beyond goal length of stay may be needed for(3)(7): [ ]a) Hepatorenal syndrome [ ]b) Severe or persistent hepatic encephalopathy [ ]c) Renal failure due to other causes associated with cirrhosis (e.g., hypovolemia) [ ]d) Severe or persistent coagulation abnormalities [ ]e) Refractory ascites, volume, or electrolyte abnormality [ ]f) Severe or persistent gastroesophageal bleeding [ ]g) Severe infectious or hepatotoxin-induced hepatitis (eg, acetaminophen) [ ]h) Hemodynamic instability that is severe or persistent The original [employer] content created by [employer] has been revised. The portions of the content which have been revised are identified through the use of italic text or in bold, and [facility] has neither reviewed nor approved the modified material. All other unmodified content is copyright [employer] [employer] [facility]. Please see references footnoted in the original [employer] [facility] edition 2016 Admit Criteria Met?: Yes
[2016-05-30] MEDS: Pantoprazole 40 mg EC Tab PO SCH (06:36)
[2016-05-30] MEDS: Levothyroxine 0.025 Mg Tab PO SCH (06:36)
[2016-05-30] MEDS: Lactulose 10 Gm/15 mL 30mL UDC PO SCH ×2 (06:36→12:49)
[2016-05-30] MEDS: Sodium Chloride 0.9% 1,000 ML IV SCH (06:41)
[2016-05-30] MEDS: Multivitamin w/ Minerals Tab PO SCH (08:36)
[2016-05-30] MEDS: Potassium Chloride 20 mEq ER Tab PO SCH (08:36)
--- NOTE | 2016-05-31 03:50 | Discharge Summary ---
CHIEF COMPLAINT: The patient has generalized weakness with confusion. HISTORY OF PRESENT ILLNESS AND HOSPITAL COURSE: As per the record, the patient was uncooperative and refusing to take her medications at nursing facility, although the patient gives different story that she was supposed to take some medication that she did not want to take, and she was supposed to take all medications at one time. Otherwise, the patient has no fever, no chills, no nausea, no vomiting, no diarrhea, no constipation or dysuria. On initial evaluation, the patient's vital signs were stable and ammonia was high 66. The patient was admitted with the diagnosis of hepatic encephalopathy. Lactulose and rifaximin were started. With the time, the patient's ammonia improved. She was very stable and communicating well. For the assistance, GI consultation with Dr. Isra Zuluaga was called. DISCHARGE CONDITION: Stable. Encephalopathy improved. DISCHARGE DIAGNOSES: Hepatic encephalopathy, noncompliance, cirrhosis, peptic ulcer disease, hypothyroidism, and history of diverticulosis. DISCHARGE DISPOSITION: [facility]. ADDENDUM DISCHARGE MEDICATION: As per medication reconciliation sheet. JOB# [id number]
[2016-05-31 06:09] LABS: HEP B CORE IGM Negative (Negative); HEP C ANTIBODY 0.3 s/co ratio (0.0-0.9)
== END 2016-05-30 16:55 | DRG 279 ==
LOC: ER 14:05 → MSI 17:45
PROVIDERS: ADMIT Internal Medicine Infectious Disease; ATTEND Internal Medicine Infectious Disease
DX: K72.90 Hepatic failure, unspecified without coma (principal); F32.9 Major depressive disorder, single episode, unspecified; K21.9 Gastro-esophageal reflux disease without esophagitis; E03.9 Hypothyroidism, unspecified; K74.60 Unspecified cirrhosis of liver; I95.1 Orthostatic hypotension; K57.90 Diverticulosis of intestine, part unspecified, without perforation or abscess without bleeding; D64.9 Anemia, unspecified; I25.10 Atherosclerotic heart disease of native coronary artery without angina pectoris; Z90.710 Acquired absence of both cervix and uterus
CPT/HCPCS: 36415-UA; 71010-TC; 80053-TC; 80074-90; 81003-TC; 82140-TC; 82550-TC; 83605; 84443-TC; 85025-TC; 85610-TC; 85730-TC; 93005; J7030; Z7610

== ENCOUNTER 2016-12-15 18:18 | Inpatient (IN) | payer MEDICAID ==
--- NOTE | 2016-12-15 18:45 | ED Physician Chart ---
Chief Complaint/HPI - Patient Information Date Seen:: 12/15/16 Time Seen:: 18:30 Chief Complaint:: ABDOMINAL PAIN History of Present Illness:: THIS IS A 55 YO FEMALE WITH A LONG HISTORY OF LIVER FAILURE FROM ALCOHOL ABUSE AND ASCITES. SHE WAS SENT HERE BY HER PMD FOR EVALUATION AND TREATMENT OF HER LIVER FAILURE. SHE DENIES NAUSEA AND VOMITING. SHE HAS BEEN DRINKING LATELY. Allergies:: Allergies Allergy/AdvReac Type Severity Reaction Status Date / Time No Known Allergies Allergy Verified 05/26/16 15:05 Vitals:: Vital Signs - 8 hr 12/15/16 18:27 Temp 98.4 F HR 78 RR 18 BP 110/50 O2 Sat % 98 Historian:: Patient Review:: Nurse's Note Reviewed, Old Chart Reviewed Review of Systems - Review of Systems General/Constitutional: No fever, No chills, No weight loss, No weakness, No diaphoresis, No edema, No loss of appetite Skin: No skin lesions, No rash, No bruising Head: No headache, No light-headedness Eyes: No loss of vision, No pain, No diplopia ENT: No earache, No nasal drainage, No sore throat, No tinnitus Neck: No neck pain, No swelling, No thyromegaly, No stiffness, No mass noted Cardio Vascular: No chest pain, No palpitations, No PND, No orthopnea, No edema Pulmonary: No SOB, No cough, No sputum, No wheezing GI: No nausea, No vomiting, No diarrhea, Pain, No melena, No hematochezia, No constipation, No hematemesis G/U: No dysuria, No frequency, No hematuria Musculoskeletal: No bone or joint pain, No back pain, No muscle pain Endocrine: No polyuria, No polydipsia Psychiatric: No prior psych history, No depression, No anxiety, No suicidal ideation Hematopoietic: No bruising, No lymphadenopathy Allergic/Immuno: No urticaria, No angioedema Neurological: No syncope, No focal symptoms, No weakness, No paresthesia, No headache, No seizure, No dizziness, No confusion, No vertigo Past Medical History - Past Medical History Obtainable: Yes Past Medical History: Other (LIVER FAILURE) Family History: None Social History: Smoker, Alcohol, No Drug Use Surgical History: Psychiatricy History: Depression Family Medical History - Family Member Mother History Unknown: Yes Ethnicity: Living Status: Hx Family Cancer: Yes Hx Family Coronary Artery Disease: No Hx Family Congestive Heart Failure: No Hx Family Hypertension: No Hx Family Stroke: No Hx Family Diabetes: No Hx Family Seizures: No Hx Family Dementia: No Hx Family AIDS: No Hx Family HIV: No Hx Family COPD: No Hx Family Hepatitis: No Hx Family Psychiatric Problems: No Hx Family Tuberculosis: No Physical Exam - Physical Examination General/Constitutional: Awake, Well-developed, well-nourished, Alert, No distress, GCS 15, Non-toxic appearing, Ambulatory Other Gen/Cons comments:: OBESE Head: Atraumatic Eyes: Lids, conjuctiva normal, PERRL, EOMI Skin: Nl inspection, No rash, No skin lesions, No ecchymosis, Well hydrated, No lymphadenopathy ENMT: External ears, nose nl, Nasal exam nl, Lips, teeth, gums nl Neck: Nontender, Full ROM w/o pain, No JVD, No nuchal rigidity, No bruit, No mass, No stridor Respiratory: Nl effort/Exclusion, Clear to Auscultation, No Wheeze/Rhonchi/Rales Cardio Vascular: RRR, No murmur, gallop, rubs, NL S1 S2 GI: No tenderness/rebounding/guarding, No organomegaly, No hernia, Normal BS's, No mass/bruits, No McBurney tenderness Other GI comments:: THE ABDOMEN IS DISTENDED AND FLUID FILLED. : No CVA tenderness Extremities: No tenderness or effusion, Full ROM, normal strength in all extremities, No edema, Normal digits & nails Neuro/Psych: Alert/oriented, DTR's symmetric, Normal sensory exam, Normal motor strength, Judgement/insight normal, Mood normal, Normal gait, No focal deficits Misc: normal gait, Normal back, No paraspinal tenderness Labs/Radiology/EKG Results - Lab Results Results: Abnormal Lab Results 12/15/16 12/15/16 12/15/16 18:41 18:41 18:41 WBC 9.9 D RBC 4.01 Hgb 12.0 D Hct 35.5 D MCV 88.6 MCH 30.0 MCHC Differential 33.8 RDW 15.0 Plt Count 159 MPV 7.7 Neutrophils % 62.3 Lymphocytes % 26.5 Monocytes % 8.9 Eosinophils % 2.0 Basophils % 0.3 PT 11.1 INR 1.07 PTT (Actin FS) 27.6 Sodium Potassium Chloride Carbon Dioxide Anion Gap BUN Creatinine Est GFR ( Amer) Est GFR (Non-Af Amer) BUN/Creatinine Ratio Glucose Calcium Total Bilirubin AST ALT Alkaline Phosphatase Ammonia Troponin I Total Protein Albumin Globulin Albumin/Globulin Ratio Triglycerides 115 Cholesterol 149 LDL Cholesterol Direct 75 HDL Cholesterol 68 Amylase Ethyl Alcohol 12/15/16 12/15/16 12/15/16 18:41 18:41 18:41 WBC RBC Hgb Hct MCV MCH MCHC Differential RDW Plt Count MPV Neutrophils % Lymphocytes % Monocytes % Eosinophils % Basophils % PT INR PTT (Actin FS) Sodium 134 L Potassium 3.8 Chloride 101 Carbon Dioxide 27.2 Anion Gap 9.6 BUN 21 Creatinine 0.8 Est GFR ( Amer) > 60.0 Est GFR (Non-Af Amer) > 60.0 BUN/Creatinine Ratio 26.3 Glucose 105 Calcium 9.9 Total Bilirubin 0.7 AST 24 ALT 15 Alkaline Phosphatase 174 H Ammonia 76 H Troponin I < 0.01 L Total Protein 7.7 Albumin 4.1 Globulin 3.6 Albumin/Globulin Ratio 1.1 Triglycerides Cholesterol LDL Cholesterol Direct HDL Cholesterol Amylase Ethyl Alcohol 12/15/16 12/15/16 18:41 18:41 WBC RBC Hgb Hct MCV MCH MCHC Differential RDW Plt Count MPV Neutrophils % Lymphocytes % Monocytes % Eosinophils % Basophils % PT INR PTT (Actin FS) Sodium Potassium Chloride Carbon Dioxide Anion Gap BUN Creatinine Est GFR ( Amer) Est GFR (Non-Af Amer) BUN/Creatinine Ratio Glucose Calcium Total Bilirubin AST ALT Alkaline Phosphatase Ammonia Troponin I Total Protein Albumin Globulin Albumin/Globulin Ratio Triglycerides Cholesterol LDL Cholesterol Direct HDL Cholesterol Amylase 52 Ethyl Alcohol < 10 - Radiology Results Results: CT SCAN OF THE ABDOMEN = ASCITES - EKG Interpretations EKG Time:: 19:11 Rate & Rhythm: RATE= 74 [place]: RIGHT Assessment - Assessment General Assessment: HEPATIC FAILURE ANEMIA ELEVATED AMONIA ED Septic Shock - . Is Septic Shock (SBP<90, OR Lactate>4 mmol\L) present?: No - <6hrs of presentation: Vital Signs: Vital Signs - 8 hr 12/15/16 18:27 Temp 98.4 F HR 78 RR 18 BP 110/50 O2 Sat % 98 Reassessment (Disposition) - Reassessment Reassessment Condition:: Unchanged - Diagnosis Diagnosis:: HEPATIC FAILURE ANEMIA ELEVATED AMONIA - Aftercare/Follow up Instructions Aftercare/Follow-Up Instructions:: Counseled pt regarding lab results/diagnosis & need follow up, Refer to Discharge Instructions, Counseled pt & family regarding lab results/diagnosis & need follow up - Patient Disposition Discharge/Transfer:: Home Admitting Medical Physician:: Corinna West Condition at Disposition:: Unchanged ED Discharge Plan - Patient Disposition Admit/Discharge/Transfer: Acute Care w/in this hosp Condition at Disposition: Unchanged
[2016-12-15 18:52] LABS: % BASOPHILS 0.3 % (0.0-2.0); % LYMPHOCYTES 26.5 % (20.0-50.0); % MONOCYTES 8.9 % (2.0-10.0); % NEUTROPHILS 62.3 % (40.0-80.0); MEAN CELL VOLUME 88.6 fl (81-100); MEAN CORPUSCULAR HGB CONC 33.8 pg (28.0-36.0); MEAN PLATELET VOLUME 7.7 fl; NEUTROPHILE ABSOLUTE 6.2 Th/cmm (1.8-8.0); PLATELET COUNT 159 Th/cmm (150-400); RED BLOOD COUNT 4.01 Mil/cmm (3.80-5.10)
[2016-12-15 18:53] LABS: HEMATOCRIT 35.5 % (35.0-45.0); WHITE BLOOD COUNT 9.9 Th/cmm (4.8-10.8)
[2016-12-15 19:08] LABS: INR 1.07 (0.5-1.4); PROTHROMBIN TIME (TEST) 11.1 SECONDS (9.5-11.5)
[2016-12-15 19:10] LABS: CHOLESTEROL 149 mg/dL (<200); TRIGLYCERIDES 115 mg/dL (<150)
[2016-12-15 19:13] LABS: ALB/GLOB RATIO 1.1 (1.0-1.8); ALKALINE PHOSPHATASE 174 U/L (34-104); ANION GAP 9.6 (7.0-16.0); BILIRUBIN,TOTAL 0.7 mg/dL (0.3-1.0); BUN - UREA NITROGEN 21 mg/dL (7-25); BUN/CREATININE RATIO 26.3; CALCIUM SERUM 9.9 mg/dL (8.6-10.3); CARBON DIOXIDE 27.2 mEq/L (21.0-31.0); CHLORIDE 101 mEq/L (98-107); CREATININE - SERUM 0.8 mg/dL (0.6-1.2); GLUCOSE 105 mg/dL (70-105); POTASSIUM SERUM 3.8 mEq/L (3.5-5.1); SGOT 24 U/L (13-39); SGPT/ALT 15 U/L (7-52); SODIUM SERUM 134 mEq/L (136-145)
[2016-12-15] MEDS ORDERED: TEMAZEPAM 7.5 MG PO PRN (21:31)
[2016-12-15 23:31] VITALS: BP 110/67
[2016-12-16 07:29] LABS: URINE BILIRUBIN NEGATIVE (NEGATIVE); URINE COLOR YELLOW; URINE GLUCOSE (UA) NEGATIVE (NEGATIVE)
[2016-12-16 07:30] LABS: URINE BLOOD NEGATIVE (NEGATIVE); URINE EPITHELIAL CELLS FEW /lpf (FEW); URINE KETONE NEGATIVE (NEGATIVE); URINE PH 5.5; URINE PROTEIN NEGATIVE (NEGATIVE); URINE RBC 0-2 /hpf (0-5); URINE UROBILINOGEN 0.2 E.U./dL (0.2 - 1.0); URINE WBC 0-2 /hpf (0-5)
[2016-12-16 07:31] LABS: URINE BACTERIA MANY /hpf (NONE SEEN)
--- NOTE | 2016-12-16 09:58 | Diagnostic Imaging Report ---
Exam: CT scan of the abdomen and pelvis without intravenous contrast History: Abdominal pain Total DLP equals 705 CTDI equals 15.4 Axial sections were obtained from the xiphoid process down to the pubic symphysis. The liver demonstrates a normal size and contour. No focal lesions are seen. The spleen appears normal. No abnormalities are seen in the region of the pancreas. The kidneys appear normal bilaterally. The exam of the pelvis demonstrates preservation of normal fat planes. No abnormal soft tissue masses. No abnormal fluid collections. Mild diverticular processes without diverticulitis is noted in the sigmoid colon. The appendix is normal There is evidence for cystic area adjacent to the right side of the urinary bladder which might represent bladder diverticulum versus a bowel cyst. Clinical correlation recommended. Examination with contrast material would be helpful. Bony structures demonstrate no evidence for lytic or blastic lesions Impression: 7 cm cystic area right lower abdomen adjacent to urinary bladder question of urinary bladder diverticulum versus cystic lesion of the bowel, clinical correlation CT examination with contrast material is recommended. Mild diverticular process sigmoid colon without diverticulitis.
--- NOTE | 2016-12-16 09:59 | Diagnostic Imaging Report ---
Portable chest x-ray Time: 1835 hours History: Shortness of breath Allowing for portable technique the heart size is normal. No focal pulmonary parenchymal processes. No hilar or mediastinal abnormalities. Impression: No acute abnormalities.
[2016-12-16] MEDS: Vitamin B Complex w/Vitamin C Tab PO SCH (16:24)
[2016-12-16] MEDS ORDERED: Morphine Sulfate 2 mg/mL 1mL Syr IVP PRN (18:30)
[2016-12-16] MEDS: Morphine Sulfate 2 mg/mL 1mL Syr IVP PRN (21:52)
[2016-12-17] MEDS: Vitamin B Complex w/Vitamin C Tab PO SCH (10:08)
[2016-12-17] MEDS: Lactulose 10 Gm/15 mL 30mL UDC PO SCH ×2 (11:45→16:45)
--- NOTE | 2016-12-17 12:00 | Consultation ---
DATE OF CONSULTATION: 12/17/2016 INPATIENT GASTROINTESTINAL CONSULTATION REFERRING PHYSICIAN: Dr. West. REASON FOR CONSULTATION: Alcoholic hepatitis. HISTORY OF PRESENT ILLNESS: A 55-year-old female with underlying history of liver disease from alcohol usage has had ascites in the past requiring paracentesis. The patient came to the hospital because her doctor sent her in for concern of liver failure. She denies having any nausea, vomiting, hematemesis, or coffee-ground emesis. States that she has been drinking lately. Feels that her abdomen is distended and denies abdominal pain. PAST MEDICAL HISTORY: Alcoholic liver disease. PAST SURGICAL: C section. FAMILY HISTORY: Noncontributory. SOCIAL HISTORY: Drinks alcohol. Denies tobacco or IV drug usage. ALLERGIES: None. CURRENT MEDICATIONS: Morphine, Restoril, Ultram. REVIEW OF SYSTEMS: Ten point review of system was performed and the pertinent positives are liver failure. All other systems were otherwise negative. PHYSICAL EXAMINATION: VITAL SIGNS: Temperature 98.1, breathing 20, pulse of 88, blood pressure 121/76, satting 95% generally overweight. GENERAL: In no apparent distress. EYES: Anicteric, normal conjunctivae. HEENT: Normocephalic, atraumatic. Moist mucous membranes. NECK: Soft, supple. CHEST: Clear. No effort. CARDIOVASCULAR: Regular rate and rhythm. ABDOMEN: Soft, nontender, mildly distended. SKIN: Warm, dry. EXTREMITIES: Reveal no cyanosis. PSYCHOLOGIC: Alert and oriented x 3. LABORATORY DATA: Show white count 9.9, hemoglobin 12, platelets of 159. INR is 1.07, total bilirubin 0.7, AST 24, ALT 16, alkaline phosphatase 174. Ammonia 76. Amylase 52, alcohol level was left and 10. IMPRESSION: This is a 55-year-old female with alcoholic liver disease, may have underlying alcoholic hepatitis and alcoholic cirrhosis, does not appear to have any signs of GI bleeding at this time, bilirubin is distended, which could be represents have underlying ascites. The patient's ammonia level was also elevated. PLAN: 1. Ultrasound and if positive for fluid, then will need paracentesis. 2. Provide the patient with Xifaxan and lactulose. 3. Avoid alcohol, join Alcoholic Anonymous. 4. Check an alpha fetoprotein. Thank you for allowing me to participate. Please call me if any questions. [facility]# [id number]
--- NOTE | 2016-12-17 12:42 | History and Physical ---
History of Present Illness - HPI Chief Complaint: abdominal pain HPI: 55 year old female patient with h/o liver failure h/o alcohol abuse h/o ascites patient referred by pcp to for evaluation of liver failure Vital Signs: Last Vital Signs Temp 98.3 F 12/17/16 12:00 Pulse 83 12/17/16 12:00 Resp 18 12/17/16 12:00 BP 123/71 12/17/16 12:00 Pulse Ox 96 12/17/16 12:00 Past Medical History Psych: Report: Depression Other History: h/o liver failure - Past Surgical History Past Surgical History: Family Medical History - Family Member Mother History Unknown: Yes Ethnicity: Living Status: Hx Family Cancer: Yes Hx Family Coronary Artery Disease: No Hx Family Congestive Heart Failure: No Hx Family Hypertension: No Hx Family Stroke: No Hx Family Diabetes: No Hx Family Seizures: No Hx Family Dementia: No Hx Family AIDS: No Hx Family HIV: No Hx Family COPD: No Hx Family Hepatitis: No Hx Family Psychiatric Problems: No Hx Family Tuberculosis: No Social History Smoke: # pack years, <1 pack per day (smoker) Alcohol: Social Drugs: None Lives: With Family Health Maintenance Health Maintenance: Other - Medications Home Medications: Home Medication Medication Instructions Recorded Type Levothyroxine [Synthroid] 0.025 mg PO QDAC 03/14/16 History Magnesium Oxide [Mag-Oxide] 400 mg PO BID 03/14/16 History Nitroglycerin [Nitrostat] 0.4 mg SL Q5MIN PRN MDD 3 TABS 03/14/16 History Docusate Sodium [Colace] 100 mg PO Q12H PRN #0 cap 04/24/16 Rx Pantoprazole [Protonix] 40 mg PO QDAC #0 ect 04/24/16 Rx Escitalopram Oxalate [Lexapro] 20 mg PO DAILY 05/03/16 History Albuterol Nebulizer 2.5mg/3mL 2.5 mg IH Q6HR PRN 10/18/16 History [Albuterol Neb UD*] Lactulose [Cephulac] 15 gm PO BID 10/18/16 History Mirtazapine [Remeron] 7.5 mg PO HS 10/18/16 History Mylanta 30 ml PO Q6H PRN 10/18/16 History Propranolol HCl [Inderal*] 10 mg PO BID 10/18/16 History Rifaximin [Xifaxan] 550 mg PO BID 10/18/16 History Temazepam [Restoril] 7.5 mg PO HS PRN 10/18/16 History Tramadol HCl [Ultram] 50 mg PO Q8H PRN 10/18/16 History Vitamin B Complex 1 sgl PO DAILY 10/18/16 History Furosemide [Lasix] 20 mg PO BID 12/15/16 History Potassium Chloride ER [Klor-Con] 20 meq PO BID 12/15/16 History - Allergies Allergies/Adverse Reactions: Allergies Allergy/AdvReac Type Severity Reaction Status Date / Time No Known Allergies Allergy Verified 05/26/16 15:05 Review of Systems - Review of Systems Constitutional: Report: No Significant Eyes: Report: No Significant ENT: Report: No Significant Respiratory: Report: No Significant Cardiovascular: Report: No Significant. Denies: Orthopnea Gastrointestinal: Report: Abdominal Pain. Denies: No Significant Genitourinary: Report: No Significant Musculoskeletal: Report: No Significant Skin: Report: No Significant Neurological: Report: No Significant Physical Exam - Physical Exam HEENT: Report: Ears Nose Throat within normal limits Neck: Report: Within normal limits Cardiovascular Systems: Report: +s1/s2 noted Respiratory: Report: Breath Sounds are within normal limits Abdomen: Denies: Non-tender to palpation (distended) Back: Report: Inspection of back is within normal limits. Extremities: Report: Non-tender to palpation. Skin: Report: Color of skin is within normal limits Neuro/Psych: Report: Mood affect is within normal limits - Lab Results All Lab Results last 24 hours: Laboratory Last Values WBC 9.9 Th/cmm (4.8-10.8) D 12/15/16 18:41 RBC 4.01 Mil/cmm (3.80-5.10) 12/15/16 18:41 Hgb 12.0 gm/dL (11.7-15.5) D 12/15/16 18:41 Hct 35.5 % (35.0-45.0) D 12/15/16 18:41 MCV 88.6 fl (81-100) 12/15/16 18:41 MCH 30.0 pg (27.0-31.0) 12/15/16 18:41 MCHC Differential 33.8 pg (28.0-36.0) 12/15/16 18:41 RDW 15.0 % (11.5-20.0) 12/15/16 18:41 Plt Count 159 Th/cmm (150-400) 12/15/16 18:41 MPV 7.7 fl 12/15/16 18:41 Neutrophils % 62.3 % (40.0-80.0) 12/15/16 18:41 Lymphocytes % 26.5 % (20.0-50.0) 12/15/16 18:41 Monocytes % 8.9 % (2.0-10.0) 12/15/16 18:41 Eosinophils % 2.0 % (0.0-5.0) 12/15/16 18:41 Basophils % 0.3 % (0.0-2.0) 12/15/16 18:41 PT 11.1 SECONDS (9.5-11.5) 12/15/16 18:41 INR 1.07 (0.5-1.4) 12/15/16 18:41 PTT (Actin FS) 27.6 SECONDS (26.0-38.0) 12/15/16 18:41 Sodium 134 mEq/L (136-145) L 12/15/16 18:41 Potassium 3.8 mEq/L (3.5-5.1) 12/15/16 18:41 Chloride 101 mEq/L (98-107) 12/15/16 18:41 Carbon Dioxide 27.2 mEq/L (21.0-31.0) 12/15/16 18:41 Anion Gap 9.6 (7.0-16.0) 12/15/16 18:41 BUN 21 mg/dL (7-25) 12/15/16 18:41 Creatinine 0.8 mg/dL (0.6-1.2) 12/15/16 18:41 Est GFR ( Amer) > 60.0 ml/min (>90) 12/15/16 18:41 Est GFR (Non-Af Amer) > 60.0 ml/min 12/15/16 18:41 BUN/Creatinine Ratio 26.3 12/15/16 18:41 Glucose 105 mg/dL (70-105) 12/15/16 18:41 Calcium 9.9 mg/dL (8.6-10.3) 12/15/16 18:41 Total Bilirubin 0.7 mg/dL (0.3-1.0) 12/15/16 18:41 AST 24 U/L (13-39) 12/15/16 18:41 ALT 15 U/L (7-52) 12/15/16 18:41 Alkaline Phosphatase 174 U/L (34-104) H 12/15/16 18:41 Ammonia 76 umol/L (16-53) H 12/15/16 18:41 Troponin I < 0.01 ng/mL (0.01-0.05) L 12/15/16 18:41 Total Protein 7.7 gm/dL (6.0-8.3) 12/15/16 18:41 Albumin 4.1 gm/dL (3.7-5.3) 12/15/16 18:41 Globulin 3.6 gm/dL 12/15/16 18:41 Albumin/Globulin Ratio 1.1 (1.0-1.8) 12/15/16 18:41 Triglycerides 115 mg/dL (<150) 12/15/16 18:41 Cholesterol 149 mg/dL (<200) 12/15/16 18:41 LDL Cholesterol Direct 75 mg/dL (75-193) 12/15/16 18:41 HDL Cholesterol 68 mg/dL (23-92) 12/15/16 18:41 Amylase 52 U/L (29-103) 12/15/16 18:41 TSH 4.76 uIU/ml (0.34-5.60) 12/15/16 18:41 Urine Source CLEAN C 12/16/16 05:40 Urine Color YELLOW 12/16/16 05:40 Urine Clarity CLEAR (CLEAR) 12/16/16 05:40 Urine pH 5.5 12/16/16 05:40 Ur Specific [place] 1.015 (1.005-1.030) 12/16/16 05:40 Urine Protein NEGATIVE mg/dL (NEGATIVE) 12/16/16 05:40 Urine Glucose (UA) NEGATIVE mg/dL (NEGATIVE) 12/16/16 05:40 Urine Ketones NEGATIVE mg/dL (NEGATIVE) 12/16/16 05:40 Urine Blood NEGATIVE (NEGATIVE) 12/16/16 05:40 Urine Nitrate POSITIVE (NEGATIVE) H 12/16/16 05:40 Urine Bilirubin NEGATIVE (NEGATIVE) 12/16/16 05:40 Urine Urobilinogen 0.2 E.U./dL (0.2 - 1.0) 12/16/16 05:40 Ur Leukocyte Esterase NEGATIVE (NEGATIVE) 12/16/16 05:40 Urine RBC 0-2 /hpf (0-5) 12/16/16 05:40 Urine WBC 0-2 /hpf (0-5) 12/16/16 05:40 Ur Epithelial Cells FEW /lpf (FEW) 12/16/16 05:40 Urine Bacteria MANY /hpf (NONE SEEN) 12/16/16 05:40 Ethyl Alcohol < 10 mg/dL (0-10) 12/15/16 18:41 RPR NONREACTIVE (NONREACTIVE) 12/15/16 18:41 - Assessment Assessment: liver failure ascites anemia elevated [place] liver cirrhosis - Plan Plan: as per order sheet
[2016-12-17] MEDS: Morphine Sulfate 2 mg/mL 1mL Syr IVP PRN (22:28)
[2016-12-18] MEDS: Vitamin B Complex w/Vitamin C Tab PO SCH (09:31)
[2016-12-18] MEDS: Lactulose 10 Gm/15 mL 30mL UDC PO SCH ×3 (09:31→16:53)
--- NOTE | 2016-12-18 10:10 | Diagnostic Imaging Report ---
Abdominal ultrasound HISTORY: Cirrhosis, pain The liver appears somewhat enlarged. There is an approximate 3.0 x 2.5 x 3.1 cm sonolucent cystic focus within the left lobe near the angelica hepatis and ligamentum teres. In retrospect, this corresponds to a hypodense lesion now seen on a prior CT scan of December 15, 2016. This may represent a cyst. A scan following administration of intravenous contrast would provide additional characterization and assessment. The gallbladder appears normal. No calculi are seen. No biliary dilatation. Pancreas cannot be seen due to bowel gas. The kidneys appear normal bilaterally. The spleen appears generous in size. No free fluid seen within the abdomen. IMPRESSION: 1. No free fluid within the abdomen 2. 3.0 cm hypodense lesion within the left lobe of the liver near the angelica hepatis and ligamentum teres. This may represent a cyst. In retrospect, this appears to correspond to a hypodense lesion noted on a CT scan of December 15, 2016. A CT scan following administration of intravenous contrast would provide additional characterization. 3. Hepatomegaly
--- NOTE | 2016-12-18 11:54 | General Progress Note ---
Subjective - Review of Systems Events since last encounter: 55 year old female patient with h/o liver failure h/o alcohol abuse h/o ascites still c/o abd pain Objective - Results Result Diagrams: 12/15/16 18:41 12/15/16 18:41 Recent Labs: Laboratory Last Values WBC 9.9 Th/cmm (4.8-10.8) D 12/15/16 18:41 RBC 4.01 Mil/cmm (3.80-5.10) 12/15/16 18:41 Hgb 12.0 gm/dL (11.7-15.5) D 12/15/16 18:41 Hct 35.5 % (35.0-45.0) D 12/15/16 18:41 MCV 88.6 fl (81-100) 12/15/16 18:41 MCH 30.0 pg (27.0-31.0) 12/15/16 18:41 MCHC Differential 33.8 pg (28.0-36.0) 12/15/16 18:41 RDW 15.0 % (11.5-20.0) 12/15/16 18:41 Plt Count 159 Th/cmm (150-400) 12/15/16 18:41 MPV 7.7 fl 12/15/16 18:41 Neutrophils % 62.3 % (40.0-80.0) 12/15/16 18:41 Lymphocytes % 26.5 % (20.0-50.0) 12/15/16 18:41 Monocytes % 8.9 % (2.0-10.0) 12/15/16 18:41 Eosinophils % 2.0 % (0.0-5.0) 12/15/16 18:41 Basophils % 0.3 % (0.0-2.0) 12/15/16 18:41 PT 11.1 SECONDS (9.5-11.5) 12/15/16 18:41 INR 1.07 (0.5-1.4) 12/15/16 18:41 PTT (Actin FS) 27.6 SECONDS (26.0-38.0) 12/15/16 18:41 Sodium 134 mEq/L (136-145) L 12/15/16 18:41 Potassium 3.8 mEq/L (3.5-5.1) 12/15/16 18:41 Chloride 101 mEq/L (98-107) 12/15/16 18:41 Carbon Dioxide 27.2 mEq/L (21.0-31.0) 12/15/16 18:41 Anion Gap 9.6 (7.0-16.0) 12/15/16 18:41 BUN 21 mg/dL (7-25) 12/15/16 18:41 Creatinine 0.8 mg/dL (0.6-1.2) 12/15/16 18:41 Est GFR ( Amer) > 60.0 ml/min (>90) 12/15/16 18:41 Est GFR (Non-Af Amer) > 60.0 ml/min 12/15/16 18:41 BUN/Creatinine Ratio 26.3 12/15/16 18:41 Glucose 105 mg/dL (70-105) 12/15/16 18:41 Calcium 9.9 mg/dL (8.6-10.3) 12/15/16 18:41 Total Bilirubin 0.7 mg/dL (0.3-1.0) 12/15/16 18:41 AST 24 U/L (13-39) 12/15/16 18:41 ALT 15 U/L (7-52) 12/15/16 18:41 Alkaline Phosphatase 174 U/L (34-104) H 12/15/16 18:41 Ammonia 76 umol/L (16-53) H 12/15/16 18:41 Troponin I < 0.01 ng/mL (0.01-0.05) L 12/15/16 18:41 Total Protein 7.7 gm/dL (6.0-8.3) 12/15/16 18:41 Albumin 4.1 gm/dL (3.7-5.3) 12/15/16 18:41 Globulin 3.6 gm/dL 12/15/16 18:41 Albumin/Globulin Ratio 1.1 (1.0-1.8) 12/15/16 18:41 Triglycerides 115 mg/dL (<150) 12/15/16 18:41 Cholesterol 149 mg/dL (<200) 12/15/16 18:41 LDL Cholesterol Direct 75 mg/dL (75-193) 12/15/16 18:41 HDL Cholesterol 68 mg/dL (23-92) 12/15/16 18:41 Amylase 52 U/L (29-103) 12/15/16 18:41 TSH 4.76 uIU/ml (0.34-5.60) 12/15/16 18:41 Urine Source CLEAN C 12/16/16 05:40 Urine Color YELLOW 12/16/16 05:40 Urine Clarity CLEAR (CLEAR) 12/16/16 05:40 Urine pH 5.5 12/16/16 05:40 Ur Specific [place] 1.015 (1.005-1.030) 12/16/16 05:40 Urine Protein NEGATIVE mg/dL (NEGATIVE) 12/16/16 05:40 Urine Glucose (UA) NEGATIVE mg/dL (NEGATIVE) 12/16/16 05:40 Urine Ketones NEGATIVE mg/dL (NEGATIVE) 12/16/16 05:40 Urine Blood NEGATIVE (NEGATIVE) 12/16/16 05:40 Urine Nitrate POSITIVE (NEGATIVE) H 12/16/16 05:40 Urine Bilirubin NEGATIVE (NEGATIVE) 12/16/16 05:40 Urine Urobilinogen 0.2 E.U./dL (0.2 - 1.0) 12/16/16 05:40 Ur Leukocyte Esterase NEGATIVE (NEGATIVE) 12/16/16 05:40 Urine RBC 0-2 /hpf (0-5) 12/16/16 05:40 Urine WBC 0-2 /hpf (0-5) 12/16/16 05:40 Ur Epithelial Cells FEW /lpf (FEW) 12/16/16 05:40 Urine Bacteria MANY /hpf (NONE SEEN) 12/16/16 05:40 Ethyl Alcohol < 10 mg/dL (0-10) 12/15/16 18:41 RPR NONREACTIVE (NONREACTIVE) 12/15/16 18:41 - Physical Exam Vitals and I&O: Vital Signs Temp 98.3 F 12/18/16 08:00 Pulse 78 12/18/16 08:00 Resp 16 12/18/16 08:00 BP 151/69 12/18/16 08:00 Pulse Ox 98 12/18/16 04:00 Intake & Output 12/17/16 12/18/16 12/18/16 18:59 06:59 18:59 Intake Total 1500 Balance 1500 Weight (lbs) 99.79 kg Intake: Oral 1500 Other: # Voids 4 # Bowel Movements 1 Active Medications: Current Medications Lactulose (Cephulac) 30 gm PO BID JOLIE Stop: 02/15/17 08:59 Last Admin: 12/18/16 09:34 Dose: Not Given Morphine Sulfate (Morphine) 1 mg IVP Q3H PRN PRN Reason: Pain (Mild) Stop: 02/14/17 18:29 Morphine Sulfate (Morphine) 2 mg IVP Q3HR PRN PRN Reason: Pain (Severe) Stop: 02/14/17 18:32 Last Admin: 12/17/16 22:28 Dose: 2 mg Rifaximin (Xifaxan) 600 mg PO BID JOLIE Stop: 02/15/17 08:59 Last Admin: 12/18/16 09:31 Dose: 600 mg Temazepam (Restoril) 15 mg PO HS PRN PRN Reason: Insomnia Stop: 02/13/17 21:59 Last Admin: 12/17/16 22:46 Dose: 15 mg Tramadol HCl (Ultram) 50 mg PO Q8H PRN PRN Reason: PAIN Stop: 02/13/17 21:30 Last Admin: 12/18/16 03:22 Dose: 50 mg Vitamin B Complex/Vit C/Folic Acid (Vitamin B Complex W/Vitamin C) 1 tab PO DAILY JOLIE Stop: 02/14/17 15:59 Last Admin: 12/18/16 09:31 Dose: 1 tab General: Alert, No acute distress HEENT: Atraumatic Cardiovascular: Regular rate, Normal S1, Normal S2 Lungs: Clear to auscultation Assessment/Plan - Problem List Patient Problems: All Active Problems ABDOMINAL DISTENTION WITH BACK PAIN (Acute) Abdominal pain (Acute) R10.9 Alcoholic cirrhosis of liver with ascites (Acute) K70.31 Cirrhosis (Acute) Hepatic encephalopathy (Acute) K72.90 - Assessment Assessment: liver failure ascites anemia elevated [place] liver cirrhosis - Plan Plan: as per order sheet Nutritional Asmnt/Malnutr-PDOC - Dietary Evaluation Malnutrition Findings (Please click <Entered> for more info): Nutritional Asmnt/Malnutrition Start: 12/16/16 12: 03 Text: Status: Complete Freq: Document 12/16/16 12:03 MMULKIM (Rec: 12/16/16 12:26 MMULKIM VENTURA- FN) Nutritional Asmnt/Malnutrition Patient General Information Nutritional Screening High Risk Screening Diagnosis Hepatic failure, anemia Pertinent Medical Hx/Surgical Hx Diverticulosis of intestine, falling, GERD, AHD, CAD, Hepatic failure, thyroid disease, cirrhosis of the liver, orthostatic hypotension . Subjective Information Patient was admitted from [facility] with abdominal pain. High risk screening due to BMI 40.4. Per nursing notes, abdomen is large and ascitic. Current body weight likely higher than normal due to ascites. Patient asleep at time of visit. Current Diet Order/ Nutrition Support No added salt Patient / S.O Not Indicated Pertinent Medications Klor, Mag-oxide, synthroid, lactulose, colace, protonix, lasix, vitamin B complex Pertinent Labs (12/15) Na 134, Alkaline phosphatase 174, ammonia 76 Nutritional Hx/Data Height 1.57 m Height (Calculated Centimeters) 157.5 Current Weight (lbs) 100.244 kg Weight (Calculated Kilograms) 100.2 Weight (Calculated Grams) 993425.9 [place] Body Weight 110 % [place] Body Weight 200 Recent Weight Change No Weight Status Morbidly Obese GI Symptoms Food Allergies No Cultural/Ethnic/Confucianist Belief none indicated Skin Integrity/Comment: nolberto de la fuente 20 Estimated Nutritional Goals BEE in Kcals: Adj wt of IBW Calories/Kcals/Kg 62kg Adj wt 27-32 kcal/kg - obesity Kcals Calculated 8905-6913 kcal/day Protein: Adj wt of IBW Protein g/k-1.2 gm/kg Adj wt - with consideration of underfeeding and hepatic failure Protein Calculated 65-75 gm/day Fluid: ml Per MD d/t hepatic failure Nutritional Problem 2. Problem Problem Altered nutrition related lab values related to Etiology Electrolyte imbalance/fluid retention aeb Signs/Symptoms: Na 134 1. Problem Problem Malnutrition related to Etiology morbid obesity aeb Signs/Symptoms: BMI 40.4 (likely over estimated due to ascites) Malnutrition Related to Morbid Obesity Malnutrition related to morbid obesity BMI> or equal to 40 Query Text:(Any 1 Criteria met) Malnutrition related to morbid obesity Yes Intervention/Recommendation Comments 1. Consider modifying diet to low sodium (2gm) for further sodium restriction. 2. Decrease in ascites to likely bring BMI below 40. 3. Consider fluid restriction d/t hyponatremia. Expected Outcomes/Goals Expected Outcomes/Goals Nutrition related labs normalize, weight trends toward ideal body weight, oral intake to adequately meet nutrient needs (>75%).
[2016-12-18] MEDS ORDERED: IOHEXOL 300MG/ML 100 ML VIAL IVP ONE (13:28)
[2016-12-18] MEDS ORDERED: Levofloxacin 500mg/100mL 500 MG/100 ML BAG IV SCH (21:00)
--- NOTE | 2016-12-19 07:49 | Diagnostic Imaging Report ---
CT scan abdomen with intravenous contrast (3 phase dynamic scan) HISTORY: Liver mass Total DLP equals 1249 CTDI equals 52.0 Axial sections were obtained from the xiphoid process down to the iliac crests. Images obtained prior to administration of intravenous contrast as well as within the venous and arterial phases following contrast administration. The exam of the liver demonstrates an approximate 2.6 cm well-circumscribed hypodense lesion near the angelica hepatis. There is no enhancement following contrast administration. Density measurements are consistent with a cyst (17.8 HU). No enhancement following contrast administration. No other focal lesions. The liver appears somewhat increased in size with a bulbous contour. The spleen is also generous in size. No focal abnormalities seen in the region pancreas. No significant focal renal lesions. IMPRESSION: 1. Well-circumscribed solitary lesion within the liver near the angelica hepatis with a morphologic appearance and density measurements consistent with a cyst. A follow-up ultrasound exam in 3 months provide confirmation of stability. 2. Hepatosplenomegaly
[2016-12-19 08:09] LABS: HEP B CORE IGM Negative (Negative); HEP C ANTIBODY <0.1 s/co ratio (0.0-0.9)
[2016-12-19] MEDS: Vitamin B Complex w/Vitamin C Tab PO SCH (08:57)
[2016-12-19] MEDS: Lactulose 10 Gm/15 mL 30mL UDC PO SCH (08:59)
--- NOTE | 2016-12-19 13:03 | Consultation ---
Consult Note - Consult Note Service Date: 12/19/16 Referring Physician: Corinna West Consult Note: PHYSICIAN Consultation Note: Date of Admission: 12/15/16 Purpose of Consultation: uti Chief Complaint: Patient ALEENA LOPEZ was admitted to location [facility] with HEPATIC FAILURE, ANEMIA. History of Present Illness: 55 y female with PMH of alcohol abuse, h/o cirrhosis, hepatic encephalopathy admitte for evaluation of her hepatic status. On initial evaluation, her temperature was 98.4 degree F and WBC Count was 9,900. UA showed nitrite positive. So, ID consult was called for further evaluation and management. Besides this, patient's CT scan of the abdomen pelvis and ultrasound has developed cystic lesion and angelica hepatis area. Past Medical History: ABUSE, HISTORY OF CIRRHOSIS, HEPATIC ENCEPHALOPATHY, hypothyroidism. Anemia, obesity. Diagnoses ANEMIA, UNSPECIFIED (12/15/16) OBESITY, UNSPECIFIED (12/15/16) ALCOHOL ABUSE, UNCOMPLICATED (12/15/16) HEPATIC FAILURE, UNSPECIFIED WITHOUT COMA (12/15/16) UNSPECIFIED CIRRHOSIS OF LIVER (12/15/16) UNSPECIFIED ABDOMINAL PAIN (12/15/16) OTHER ASCITES (12/15/16) BODY MASS INDEX (BMI) 40.0-44.9, ADULT (12/15/16) Allergies Allergy/AdvReac Type Severity Reaction Status Date / Time No Known Allergies Allergy Verified 05/26/16 15:05 Vital Signs Temp 98.0 F 12/19/16 08:00 Pulse 87 12/19/16 08:00 Resp 18 12/19/16 08:00 BP 106/64 12/19/16 08:00 Pulse Ox 93 12/19/16 08:00 Intake & Output 12/18/16 12/19/16 12/19/16 18:59 06:59 18:59 Intake Total 720 240 Balance 720 240 Weight (lbs) 99.79 kg 101.741 kg 101.605 kg Intake: Oral 720 240 Other: # Voids 3 3 # Bowel Movements 0 0 Stool Characteristics Liquid Laboratory Results - last 24 hr 12/17/16 09:17 Tumor Marker AFP 3.0 Hepatitis A IgM Ab Negative Hep Bs Antigen Negative Hep B Core IgM Ab Negative Hepatitis C Antibody <0.1 Home Medication Medication Instructions Recorded Type Levothyroxine [Synthroid] 0.025 mg PO QDAC 03/14/16 History Magnesium Oxide [Mag-Oxide] 400 mg PO BID 03/14/16 History Nitroglycerin [Nitrostat] 0.4 mg SL Q5MIN PRN MDD 3 TABS 03/14/16 History Docusate Sodium [Colace] 100 mg PO Q12H PRN #0 cap 04/24/16 Rx Pantoprazole [Protonix] 40 mg PO QDAC #0 ect 04/24/16 Rx Escitalopram Oxalate [Lexapro] 20 mg PO DAILY 05/03/16 History Albuterol Nebulizer 2.5mg/3mL 2.5 mg IH Q6HR PRN 10/18/16 History [Albuterol Neb UD*] Lactulose [Cephulac] 15 gm PO BID 10/18/16 History Mirtazapine [Remeron] 7.5 mg PO HS 10/18/16 History Mylanta 30 ml PO Q6H PRN 10/18/16 History Propranolol HCl [Inderal*] 10 mg PO BID 10/18/16 History Rifaximin [Xifaxan] 550 mg PO BID 10/18/16 History Temazepam [Restoril] 7.5 mg PO HS PRN 10/18/16 History Tramadol HCl [Ultram] 50 mg PO Q8H PRN 10/18/16 History Vitamin B Complex 1 sgl PO DAILY 10/18/16 History Furosemide [Lasix] 20 mg PO BID 12/15/16 History Potassium Chloride ER [Klor-Con] 20 meq PO BID 12/15/16 History Current Medications Generic Name Dose Route Start Last Admin Trade Name Freq PRN Reason Stop Dose Admin Levofloxacin 500 mg in 100 mls @ 100 mls/hr 12/18/16 21:00 12/18/16 21:42 Levaquin Pb IV 02/16/17 20:59 100 mls/hr Q24HR JOLIE Administration Lactulose 30 gm 12/17/16 09:00 12/19/16 08:59 Cephulac PO 02/15/17 08:59 Not Given BID JOLIE Morphine Sulfate 1 mg 12/16/16 18:30 12/18/16 21:41 Morphine IVP 02/14/17 18:29 1 mg Q3H PRN Administration Pain (Mild) Morphine Sulfate 2 mg 12/16/16 18:33 12/17/16 22:28 Morphine IVP 02/14/17 18:32 2 mg Q3HR PRN Administration Pain (Severe) Rifaximin 600 mg 12/17/16 09:00 12/19/16 08:57 Xifaxan PO 02/15/17 08:59 600 mg BID JOLIE Administration Temazepam 15 mg 12/15/16 22:00 12/18/16 21:52 Restoril PO 02/13/17 21:59 15 mg HS PRN Administration Insomnia Tramadol HCl 50 mg 12/15/16 21:31 12/19/16 10:59 Ultram PO 02/13/17 21:30 50 mg Q8H PRN Administration PAIN Vitamin B Complex/Vit C/Folic Acid 1 tab 12/16/16 16:00 12/19/16 08:57 Vitamin B Complex W/Vitamin C PO 02/14/17 15:59 1 tab DAILY JOLIE Administration Review of Systems: A 12 point ROS was reviewed with the pertinent positive and negatives noted in the HPI. Social History Smoking Status Never smoker Drug Use No Alcohol Use Yes Family Medical History Family Medical History Start: 12/15/16 20: 38 Freq: ONCE Status: Active Document 12/15/16 22:38 SEVERO (Rec: 12/15/16 22:38 SEVERO [place] [id number]) Family Medical History Mother History Unknown Yes Physical Exam: General:Comfortable, not in acute distress. HEENT: Head: Normocephalic, atraumatic. Oral cavity: Moist, pink tongue. Eyes : Pallor is present, icterus present. EOMI. PERRLA. Neck: Supple, no JVD, no use of accessory neck muscles. Cardio: S1 and S2 within normal metabolism. Respiratory: CTAP. Abdominal: Soft, nontender, distended. Bowel sounds present. Genital/Urinary: Extremities: No cyanosis, no clubbing, no edema. Neurological: Assessment: 1. Nitrate positive, but there is no pyuria or bacteriuria. 2. Cirrhosis. 3. Alcohol abuse. 4. Hypothymism. 5. Diabetes Dr. Camp was called for Plan: Signed, Sen Camp M.D. [id number]
--- NOTE | 2016-12-19 15:25 | General Progress Note ---
Objective - Results Result Diagrams: 12/15/16 18:41 12/15/16 18:41 Recent Labs: Laboratory Last Values WBC 9.9 Th/cmm (4.8-10.8) D 12/15/16 18:41 RBC 4.01 Mil/cmm (3.80-5.10) 12/15/16 18:41 Hgb 12.0 gm/dL (11.7-15.5) D 12/15/16 18:41 Hct 35.5 % (35.0-45.0) D 12/15/16 18:41 MCV 88.6 fl (81-100) 12/15/16 18:41 MCH 30.0 pg (27.0-31.0) 12/15/16 18:41 MCHC Differential 33.8 pg (28.0-36.0) 12/15/16 18:41 RDW 15.0 % (11.5-20.0) 12/15/16 18:41 Plt Count 159 Th/cmm (150-400) 12/15/16 18:41 MPV 7.7 fl 12/15/16 18:41 Neutrophils % 62.3 % (40.0-80.0) 12/15/16 18:41 Lymphocytes % 26.5 % (20.0-50.0) 12/15/16 18:41 Monocytes % 8.9 % (2.0-10.0) 12/15/16 18:41 Eosinophils % 2.0 % (0.0-5.0) 12/15/16 18:41 Basophils % 0.3 % (0.0-2.0) 12/15/16 18:41 PT 11.1 SECONDS (9.5-11.5) 12/15/16 18:41 INR 1.07 (0.5-1.4) 12/15/16 18:41 PTT (Actin FS) 27.6 SECONDS (26.0-38.0) 12/15/16 18:41 Sodium 134 mEq/L (136-145) L 12/15/16 18:41 Potassium 3.8 mEq/L (3.5-5.1) 12/15/16 18:41 Chloride 101 mEq/L (98-107) 12/15/16 18:41 Carbon Dioxide 27.2 mEq/L (21.0-31.0) 12/15/16 18:41 Anion Gap 9.6 (7.0-16.0) 12/15/16 18:41 BUN 21 mg/dL (7-25) 12/15/16 18:41 Creatinine 0.8 mg/dL (0.6-1.2) 12/15/16 18:41 Est GFR ( Amer) > 60.0 ml/min (>90) 12/15/16 18:41 Est GFR (Non-Af Amer) > 60.0 ml/min 12/15/16 18:41 BUN/Creatinine Ratio 26.3 12/15/16 18:41 Glucose 105 mg/dL (70-105) 12/15/16 18:41 Calcium 9.9 mg/dL (8.6-10.3) 12/15/16 18:41 Total Bilirubin 0.7 mg/dL (0.3-1.0) 12/15/16 18:41 AST 24 U/L (13-39) 12/15/16 18:41 ALT 15 U/L (7-52) 12/15/16 18:41 Alkaline Phosphatase 174 U/L (34-104) H 12/15/16 18:41 Ammonia 76 umol/L (16-53) H 12/15/16 18:41 Troponin I < 0.01 ng/mL (0.01-0.05) L 12/15/16 18:41 Total Protein 7.7 gm/dL (6.0-8.3) 12/15/16 18:41 Albumin 4.1 gm/dL (3.7-5.3) 12/15/16 18:41 Globulin 3.6 gm/dL 12/15/16 18:41 Albumin/Globulin Ratio 1.1 (1.0-1.8) 12/15/16 18:41 Triglycerides 115 mg/dL (<150) 12/15/16 18:41 Cholesterol 149 mg/dL (<200) 12/15/16 18:41 LDL Cholesterol Direct 75 mg/dL (75-193) 12/15/16 18:41 HDL Cholesterol 68 mg/dL (23-92) 12/15/16 18:41 Amylase 52 U/L (29-103) 12/15/16 18:41 Tumor Marker AFP 3.0 ng/mL (0.0-8.3) 12/17/16 09:17 TSH 4.76 uIU/ml (0.34-5.60) 12/15/16 18:41 Urine Source CLEAN C 12/16/16 05:40 Urine Color YELLOW 12/16/16 05:40 Urine Clarity CLEAR (CLEAR) 12/16/16 05:40 Urine pH 5.5 12/16/16 05:40 Ur Specific [place] 1.015 (1.005-1.030) 12/16/16 05:40 Urine Protein NEGATIVE mg/dL (NEGATIVE) 12/16/16 05:40 Urine Glucose (UA) NEGATIVE mg/dL (NEGATIVE) 12/16/16 05:40 Urine Ketones NEGATIVE mg/dL (NEGATIVE) 12/16/16 05:40 Urine Blood NEGATIVE (NEGATIVE) 12/16/16 05:40 Urine Nitrate POSITIVE (NEGATIVE) H 12/16/16 05:40 Urine Bilirubin NEGATIVE (NEGATIVE) 12/16/16 05:40 Urine Urobilinogen 0.2 E.U./dL (0.2 - 1.0) 12/16/16 05:40 Ur Leukocyte Esterase NEGATIVE (NEGATIVE) 12/16/16 05:40 Urine RBC 0-2 /hpf (0-5) 12/16/16 05:40 Urine WBC 0-2 /hpf (0-5) 12/16/16 05:40 Ur Epithelial Cells FEW /lpf (FEW) 12/16/16 05:40 Urine Bacteria MANY /hpf (NONE SEEN) 12/16/16 05:40 Ethyl Alcohol < 10 mg/dL (0-10) 12/15/16 18:41 RPR NONREACTIVE (NONREACTIVE) 12/15/16 18:41 Hepatitis A IgM Ab Negative (Negative) 12/17/16 09:17 Hep Bs Antigen Negative (Negative) 12/17/16 09:17 Hep B Core IgM Ab Negative (Negative) 12/17/16 09:17 Hepatitis C Antibody <0.1 s/co ratio (0.0-0.9) 12/17/16 09:17 - Physical Exam Vitals and I&O: Vital Signs Temp 97.8 F 12/19/16 12:00 Pulse 77 12/19/16 12:00 Resp 18 12/19/16 12:00 BP 121/74 12/19/16 12:00 Pulse Ox 93 12/19/16 08:00 Intake & Output 12/18/16 12/19/16 12/19/16 18:59 06:59 18:59 Intake Total 720 240 Balance 720 240 Weight (lbs) 99.79 kg 101.741 kg 101.605 kg Intake: Oral 720 240 Other: # Voids 3 3 # Bowel Movements 0 0 Stool Characteristics Liquid Active Medications: Current Medications Levofloxacin (Levaquin Pb) 500 mg in 100 mls @ 100 mls/hr IV Q24HR [facility] Stop: 02/16/17 20:59 Last Admin: 12/18/16 21:42 Dose: 100 mls/hr Lactulose (Cephulac) 30 gm PO BID JOLIE Stop: 02/15/17 08:59 Last Admin: 12/19/16 08:59 Dose: Not Given Morphine Sulfate (Morphine) 1 mg IVP Q3H PRN PRN Reason: Pain (Mild) Stop: 02/14/17 18:29 Last Admin: 12/18/16 21:41 Dose: 1 mg Morphine Sulfate (Morphine) 2 mg IVP Q3HR PRN PRN Reason: Pain (Severe) Stop: 02/14/17 18:32 Last Admin: 12/17/16 22:28 Dose: 2 mg Rifaximin (Xifaxan) 600 mg PO BID [facility] Stop: 02/15/17 08:59 Last Admin: 12/19/16 08:57 Dose: 600 mg Temazepam (Restoril) 15 mg PO HS PRN PRN Reason: Insomnia Stop: 02/13/17 21:59 Last Admin: 12/18/16 21:52 Dose: 15 mg Tramadol HCl (Ultram) 50 mg PO Q8H PRN PRN Reason: PAIN Stop: 02/13/17 21:30 Last Admin: 12/19/16 10:59 Dose: 50 mg Vitamin B Complex/Vit C/Folic Acid (Vitamin B Complex W/Vitamin C) 1 tab PO DAILY [facility] Stop: 02/14/17 15:59 Last Admin: 12/19/16 08:57 Dose: 1 tab General: Alert, No acute distress HEENT: Atraumatic Cardiovascular: Regular rate, Normal S1, Normal S2 Lungs: Clear to auscultation Assessment/Plan - Problem List Patient Problems: All Active Problems ABDOMINAL DISTENTION WITH BACK PAIN (Acute) Abdominal pain (Acute) R10.9 Alcoholic cirrhosis of liver with ascites (Acute) K70.31 Cirrhosis (Acute) Hepatic encephalopathy (Acute) K72.90 - Assessment Assessment: liver failure ascites anemia elevated [place] liver cirrhosis - Plan Plan: as per order sheet Nutritional Asmnt/Malnutr-PDOC - Dietary Evaluation Malnutrition Findings (Please click <Entered> for more info): Nutritional Asmnt/Malnutrition Start: 12/16/16 12: 03 Text: Status: Complete Freq: Document 12/16/16 12:03 MMULHERN (Rec: 12/16/16 12:26 MMULHERN LORENZO- [email or web address]) Nutritional Asmnt/Malnutrition Patient General Information Nutritional Screening High Risk Screening Diagnosis Hepatic failure, anemia Pertinent Medical Hx/Surgical Hx Diverticulosis of intestine, falling, GERD, AHD, CAD, Hepatic failure, thyroid disease, cirrhosis of the liver, orthostatic hypotension . Subjective Information [facility]. High risk screening due to BMI 40.4. Per nursing notes, abdomen is large and ascitic. Current body weight likely higher than normal due to ascites. Patient asleep at time of visit. Current Diet Order/ Nutrition Support No added salt Patient / S.O Not Indicated Pertinent Medications Klor, Mag-oxide, synthroid, lactulose, colace, protonix, lasix, vitamin B complex Pertinent Labs (12/15) Na 134, Alkaline phosphatase 174, ammonia 76 Nutritional Hx/Data Height 1.57 m Height (Calculated Centimeters) 157.5 Current Weight (lbs) 100.244 kg Weight (Calculated Kilograms) 100.2 Weight (Calculated Grams) 620631.9 [place] Body Weight 110 % [place] Body Weight 200 Recent Weight Change No Weight Status Morbidly Obese GI Symptoms Food Allergies No Cultural/Ethnic/Christian Belief none indicated Skin Integrity/Comment: nolberto de la fuente 20 Estimated Nutritional Goals BEE in Kcals: Adj wt of IBW Calories/Kcals/Kg 62kg Adj wt 27-32 kcal/kg - obesity Kcals Calculated 2154-6181 kcal/day Protein: Adj wt of IBW Protein g/k-1.2 gm/kg Adj wt - with consideration of underfeeding and hepatic failure Protein Calculated 65-75 gm/day Fluid: ml Per MD d/t hepatic failure Nutritional Problem 2. Problem Problem Altered nutrition related lab values related to Etiology Electrolyte imbalance/fluid retention aeb Signs/Symptoms: Na 134 1. Problem Problem Malnutrition related to Etiology morbid obesity aeb Signs/Symptoms: BMI 40.4 (likely over estimated due to ascites) Malnutrition Related to Morbid Obesity Malnutrition related to morbid obesity BMI> or equal to 40 Query Text:(Any 1 Criteria met) Malnutrition related to morbid obesity Yes Intervention/Recommendation Comments 1. Consider modifying diet to low sodium (2gm) for further sodium restriction. 2. Decrease in ascites to likely bring BMI below 40. 3. Consider fluid restriction d/t hyponatremia. Expected Outcomes/Goals Expected Outcomes/Goals Nutrition related labs normalize, weight trends toward ideal body weight, oral intake to adequately meet nutrient needs (>75%).
--- NOTE | 2016-12-19 21:49 | Admit Criteria Form ---
Admit Criteria Forms - Admit Criteria Diagnosis: GASTROENTEROLOGY GRG Clinical Indications for Admission to Inpatient Care (Place 'X' for any and all applicable criteria): Hospital admission is needed for appropriate care of the patient because of ANY ONE of the followin [ ]I. Hemoperitoneum(7) [ ]II. Ascites requiring acute treatment indicated by ANY ONE of the following( 8)(9): [ ]a) Hemodynamic instability remaining after emergency or observation level care (as appropriate) [ ]b) Peritoneal signs present (eg, abdominal rigidity, rebound tenderness, absent bowel sounds) [ ]c) Tachypnea, Hypoxemia, or other respiratory symptoms remain after emergency or observation level care (as appropriate) [ ]d) Suspected infected ascites as indicated by ANY ONE of the following: [ ]i) Temperature greater than 100 degrees F (37.8 degrees C) [ ]ii) Abdominal pain or tenderness not relieved by paracentesis [ ]iii) Systemic signs of infection (eg, elevated WBC count, fever) [ ]iv) Ascitic fluid analysis consistent with infection ( eg, elevated WBC count): [ ]v) Vital sign abnormality [ ]III. Suspected acute intra-abdominal process indicated by ANY ONE of the following(1)(2)(3)(4)(5): [ ]a) Hemodynamic instability [ ]b) Peritoneal signs present (eg, abdominal rigidity, rebound tenderness, absent bowel sounds) [ ]c) Bowel obstruction suspected (eg, severe vomiting, abdominal distension) [ ]d) Suspected mesenteric ischemia or ischemic colitis(6) [ ]e) Other signs or symptoms of acute abdominal disease (eg, severe pain, free air): [X ]IV. Severe liver disease indicated by ANY ONE of the following(8)(9)(10)(11) (12)(13)(14): [ ]a) Acute hepatitis (eg, transaminase level greater than 1000 IU/L) [X ]b) Acute elevation of prothrombin time to more than 50% above normal or INR greater than 1.5 [ ]c) Bilirubin greater than 20 mg/dL (342 micromoles/L) (15) [ ]d) New-onset or worsening hepatic encephalopathy [ ]e) Acute liver necrosis [ ]f) Vomiting or dehydration that is severe of persistent [ ]g) Hemodynamic instability due to liver disease [ ]h) Acute renal failure [ ]i) Hepatic abscess [ ]j) Dehydration that is severe or persistent [ ]k) Hepatic hydrothorax(21) [ ]l) Other indications of severe liver disease (eg, persistent fever , ingestion of hepatotoxin) [ ]V. Severe diarrhea indicated by ANY ONE of the following(17)(18)(19)(20)(21)( 22)(23): [ ]a) High fever or other high-risk infection situation [ ]b) Intractable bloody diarrhea (eg, more than 6 bloody stools per day) [ ]c) Suspected Clostridium difficile-associated diarrhea(24) [ ]d) Change in mental status that persists after emergency or observation level care (as appropriate) [ ]e) Severe dehydration (eg, greater than 9% loss of body weight in children) [ ]f) Inability to maintain hydration [ ]g) Peritoneal signs present (eg, abdominal rigidity, rebound tenderness, absent bowel sounds) [ ]h) Abdominal ischemia suspected(6) [ ]i) Hemodynamic instability that persists after emergency or observation level care (as appropriate) [ ]j) Severe electrolyte abnormalities requiring inpatient care [ ]k) Acute renal failure [ ]. Suspected toxic megacolon(5)(6) [ ]VII.Severe dysphagia indicated by ANY ONE of the following(25)(26): [ ]a) Suspected esophageal perforation or fistula(27) [ ]b) Suspected cause that requires inpatient care (eg, caustic ingestion, severe esophagitis) (28) [ ]c) Severe dehydration (eg, greater than 9% loss of body weight in children) [ ]d) Inability to manage secretions or maintain hydration [ ]e) Hemodynamic instability that persists after emergency or observation level care (as appropriate) [ ]f) Severe electrolyte abnormalities requiring inpatient care [ ]g) Acute renal failure [ ]VIII.Vomiting and ANY ONE of the following (29)(30)(31)(32): [ ]a) High fever or other high-risk infection situation [ ]b) Change in mental status that persists after emergency or observation level care (as appropriate) [ ]c) Severe dehydration (e.g., greater than 9% loss of body weight in children) [ ]d) Peritoneal signs present (e.g., abdominal rigidity, rebound tenderness, absent bowel sounds) [ ]e) Hemodynamic instability that persists after emergency or observation level care (as appropriate) [ ]f) Severe electrolyte abnormalities requiring inpatient care [ ]g) Acute renal failure [ ]h) Bowel obstruction suspected (e.g., severe vomiting, abdominal distension) [ ]i) Vomiting that is severe or persistent after medical treatment [ ]IX. Significant dehydration indicated by ANY ONE of the following(23)(24)(25) [ ]a) Clinical findings of severe dehydration indicated by ANY ONE of the following: [ ]i) Acute loss of weight from baseline (5% of body weight in adults, 9% in pediatric patients) [ ]ii) Hemodynamic instability [ ]iii) Acute renal failure [ ]iv) Serum sodium greater than 150 mEq/L (mmol/L) [ ]b) Dehydration that is persistent indicated by ALL of the following: [ ]i) Oral rehydration therapy not tolerated or insufficient to adequately correct dehydration [ ]ii) Appropriate intravenous treatment (eg, fluids) does not readily correct dehydration hours of (ie, after 12 to 24 of treatment) [ ]X. Gastroparesis and ANY ONE of the following(37)(38)(39): [ ]a) Dehydration that is severe or persistent [ ]b) Severe electrolyte abnormalities requiring inpatient care [ ]c) Acute renal failure [ ]d) Vomiting that is severe or persistent [ ]XI. Complications of transplanted liver indicated by ANY ONE of the following (40)(41): [ ]a) Acute graft rejection requiring inpatient management (eg, intravenous immunosuppression)(42) [ ]b) Failure of transplanted liver as indicated by ANY ONE of the following: [ ]i) Acute hepatitis (eg, transaminase level greater than 1000 International Units per liter (IU/L)) [ ]ii) Acute elevation of prothrombin time to more than 50% above baseline or INR greater than 1.5 [ ]iii) Bilirubin greater than 20 mg/dL (342 micromoles/L) [ ]iv) New-onset or worsening hepatic encephalopathy [ ]v) Acute elevation of serum ammonia level (eg, greater than 210 mcg/dL (150 micromoles/L)) [ ]vi) Acute liver necrosis [ ]c) Infection requiring inpatient management (eg, Hemodynamic instability, need for intravenous antimicrobial treatment)(43)(44)(45)(46)(47)(48)(49)(50) [ ]d) Other complication of transplanted liver (eg, thrombosis, autoimmune hepatitis, variceal bleeding) requiring inpatient management(51)(52) [ ]XII Complications of transplanted pancreas indicated by ANY ONE of the following(53): [ ]a) Acute graft rejection requiring inpatient management (eg, intravenous immunosuppression)(42)(54) [ ]b) Failure of transplanted pancreas as indicated by ANY ONE of the following: [ ]i) Serum amylase greater than 3 times the upper limit of normal or baseline [ ]ii) Serum lipase greater than 3 times the upper limit of normal or baseline [ ]iii) Imaging findings consistent with pancreatic inflammation or necrosis [ ]c) Infection requiring inpatient management (eg, Hemodynamic instability, need for intravenous antimicrobial treatment)(43)(44)(45)(46)(47)(48)(49)(50) [ ]d) Other complication of transplanted liver (eg, thrombosis, autoimmune hepatitis, variceal bleeding) requiring inpatient management(51)(52) [ ]X. Gastroenterology condition and ALL of the following: [ ]a) Symptom or finding for which emergency and observation care have failed or are not considered appropriate (Also use General Criteria: Observation Care as appropriate) [ ]b) Presence of ANY ONE of the following: [ ]i) A General Admission Criteria [ ]ii) A Pediatric General Admission Criteria. The original [facility] [employer] content created by [facility] has been revised. The portions of the content which have been revised are identified through the use of italic text or in bold,and [facility] has neither reviewed nor approved the modified material. All other unmodified content is copyright [facility]. Please see references footnoted in the original [facility] edition 2016 Admit Criteria Met?: Yes
== END 2016-12-19 13:00 | disposition home or self-care (01) | DRG 279 ==
LOC: ER 18:18 → MSI 20:22
PROVIDERS: ADMIT Internal Medicine; ATTEND Internal Medicine
DX: K72.90 Hepatic failure, unspecified without coma (principal); K70.11 Alcoholic hepatitis with ascites; F32.9 Major depressive disorder, single episode, unspecified; K70.31 Alcoholic cirrhosis of liver with ascites; D64.9 Anemia, unspecified; F10.10 Alcohol abuse, uncomplicated; F17.210 Nicotine dependence, cigarettes, uncomplicated; Z79.899 Other long term (current) drug therapy; Z80.9 Family history of malignant neoplasm, unspecified
CPT/HCPCS: 36415-UA; 71010-TC; 74160-TC; 76700-TC; 80053-TC; 80061-TC; 80074-90; 80320-TC; 81001-TC; 82105-90; 82140-TC; 82150-TC; 84443-TC; 84484-TC; 85025-TC; 85610-TC; 85730-TC; 86592-TC; 93005; J1956; J2270; Q9967; Z7610